=== PATIENT | male | born 1960 | race Caucasian/White ===

== ENCOUNTER 2019-11-21 06:33 | Inpatient (IN) | payer OTHER, SELFPAY ==
[2019-11-21 07:05] LABS: Hemoglobin 16.1 g/dL (14.0-18.0); Mean Corpuscular HGB CONC 33.4 g/dL (32.0-36.0); Mean Corpuscular Hemoglobin 30.3 pg (27.0-31.0); Mean Corpuscular Volume 90.8 fL (78.0-98.0); Mean Platelet Volume 10.9 fL (7.4-10.4); Platelet Count 87 thou/uL (130-400); RBC Distribution Width 13.5 % (11.5-14.5); Red Blood Cell (RBC) Count 5.31 mill/uL (4.70-6.10); White Blood Cell (WBC) Count 12.4 thou/uL (4.8-10.8)
[2019-11-21 07:07] LABS: INR-International Normal Ratio 1.1; PTT 24.7 SEC (22.9-36.1); Prothrombin Time 13.8 SEC (12.0-14.7)
[2019-11-21 07:11] LABS: #Neutrophils 10.3 thou/uL (1.40-6.50); %Basophils 0.3 % (0.0-1.0); %Eosinophils 0.3 % (0.0-10.0); %Lymphocytes 7.9 % (21.0-51.0); %Monocytes 8.3 % (0.0-10.0); %Neutrophils 83.2 % (42.0-75.0)
[2019-11-21] MEDS ORDERED: hydrALAZINE 20 MG/ML VIAL ONE (07:20)
[2019-11-21 07:23] LABS: ALT (SGPT) 39 U/L (8-55); AST (SGOT) 28 U/L (5-34); Albumin 4.5 g/dL (3.5-5.0); Alkaline Phosphatase 66 U/L (40-110); Anion Gap 15 mmol/L (10-20); BUN (Urea Nitrogen) 11 mg/dL (8.4-25.7); CK (CPK) 128 U/L (30-200); Calc. Creatinine Clearance 0 mL/min (70-130); Calcium 9.6 mg/dL (7.8-10.44); Carbon Dioxide 21 mmol/L (22-29); Chloride 105 mmol/L (98-107); Estimated GFR-MDRD 77; Globulin 3.5 g/dL (2.4-3.5); Glucose 144 mg/dL (70-105); Potassium 3.6 mmol/L (3.5-5.1); Sodium 137 mmol/L (136-145)
[2019-11-21 07:28] LABS: Platelet Morphology Comment Appears Decreased; RBC Morphology Normal
[2019-11-21] MEDS ORDERED: Sodium Chloride 0.9% 1,000 ML IV SCH (07:30)
[2019-11-21 07:44] LABS: CKMB 1.7 ng/mL (0-6.6)
--- NOTE | 2019-11-21 07:46 | CT ---
CT OF THE BRAIN WITHOUT CONTRAST: INDICATION: Level I stroke, left-sided weakness, last seen normal at 12:00 midnight. COMPARISON: None. FINDINGS: There is a 2.1 cm intraparenchymal hemorrhage centered in the right thalamus. There is mild chronic small-vessel white matter ischemic change. The septum pellucidum and third ventricle are midline. N o additional acute infarct, hemorrhage, or hydrocephalus is evident. Mastoid air cells and paranasal sinuses are clear. IMPRESSION: 1. Hemorrhagic infarct involving the right thalamus. 2. Mild chronic small vessel white matter ischemic change. 3. Findings called to Dr. Sears at 6:42 a.m. on 11/21/2019. CODE CR POS: [place]
[2019-11-21] MEDS: hydrALAZINE 20 MG/ML VIAL SLOW IVP PRN ×3 (10:35→21:22)
[2019-11-21] MEDS ORDERED: Labetalol HCl 100 MG/20 ML VIAL SLOW IVP PRN (11:03)
[2019-11-21] MEDS ORDERED: Ondansetron PF 4 MG/2 ML Vial IVP PRN (12:07)
[2019-11-21] MEDS ORDERED: Acetaminophen 325 MG TAB PO PRN (12:07)
[2019-11-21] MEDS: Sodium Chloride 0.9% 1,000 ML IV SCH ×2 (12:15→23:20)
--- NOTE | 2019-11-21 18:58 | CON ---
DATE OF CONSULTATION: PRIMARY CARE PHYSICIAN: Mary Grace Pickering MD. CHIEF COMPLAINT: "I woke up and I couldn't move my left arm and leg." HISTORY OF PRESENT ILLNESS: Mr. Gr is a very pleasant 59-year-old gentleman who has a history of hypertension. He says that he has not had any problems until early this morning around 5:15 a.m., he woke up with some slurred speech and also noted that he could not move his left arm and left thigh. As a result, he came to the ER for evaluation. In the ER, he was evaluated and had a CT scan of the brain done. CT scan revealed a right thalamic bleed. He was admitted to the neurosurgery service and we have been consulted to help with medical management. The patient says he denied having any headache. No dizziness. No visual changes. No chest pain or shortness of breath. No nausea, but he did have one episode of vomiting. No diarrhea. He admits that he has not taken his blood pressure medications in a few weeks, and when asked why, he says he thought that he "didn't need them anymore." Otherwise, the patient has no other complaints. REVIEW OF SYSTEMS: All systems were reviewed and are negative except for that mentioned in the history of present illness. PAST MEDICAL HISTORY: Significant for hypertension. PAST SURGICAL HISTORY: He has had an appendectomy. ALLERGIES: NO KNOWN DRUG ALLERGIES. SOCIAL HISTORY: He is single. He has 3 children. His sister, Roselyn Christina, is his surrogate decision maker. He would like to be a full code. He is a former smoker, he quit 20 years ago, prior to that he smoked 2 packs a day for 5 years. He denies any alcohol use, he says he quit that about 22 years ago. FAMILY HISTORY: Significant for hypertension. MEDICATIONS: 1. Bisoprolol. 2. Hydrochlorothiazide 10 mg daily. PHYSICAL EXAMINATION: GENERAL: He is alert and oriented. He appears to be in no acute distress. He is well developed and well nourished. VITAL SIGNS: Blood pressure was 124/93 most recently, heart rate in the 80s, respiratory rate of 16, and he is afebrile. HEENT: Pupils are equal, round, and reactive to light. Extraocular muscles are intact. His sclerae anicteric. Throat, there is no erythema, no exudate. NECK: There is no adenopathy. No bruits. LUNGS: Clear to auscultation. There is no wheezing, no rales, no rhonchi. CARDIOVASCULAR: He has a normal S1 and S2. No S3 or S4. No murmurs, clicks, or rubs. ABDOMEN: Obese. It is soft, nontender, and nondistended. Positive for bowel sounds. No rebound. No guarding. No organomegaly. EXTREMITIES: There is no clubbing or cyanosis. No edema. NEUROLOGIC: He has left facial droop, and he has flaccid paralysis in the left upper extremity. The left lower extremity, he was able to move it in the lateral plane, but not lifted against gravity and not against resistance. He was able to slightly dorsiflex the foot. The reflexes were hyperactive in the patella as well as the brachioradialis. SKIN AND INTEGUMENT: There are no skin changes and no rash. LABORATORY RESULTS: White blood cell count is 12.4, hemoglobin 16.1, hematocrit is 48.2, and platelet count was 87. INR is 1.1. Sodium 137, potassium 3.6, chloride is 105, CO2 is 21, BUN of 11, creatinine 1.0, and glucose is 144. Troponin is 0.055. CT scan of the brain, again there is an area of bleed in the left thalamus and this is by my reading, no midline shift and no extension into the ventricles. ASSESSMENT: This is a pleasant 59-year-old gentleman who suffered an intracerebral hemorrhage, likely as a result of uncontrolled hypertension. The patient admits to stopping his blood pressure medicines a couple of weeks ago and the area of the bleed is one typically seen for hypertensive bleed. He is being admitted to the neurosurgical service. It appears as if surgery is not indicated at this time and primarily managing with blood pressure control. PLAN: For hypertension, restart a beta shruthi, but we will hold off on starting a combination pill with a diuretic given the brain bleed and treat him with a beta shruthi. We will start him on carvedilol at low dose for now. Continue the p.r.n. hydralazine and labetalol as already ordered. He has been counseled on the need for continued antihypertensive medications. We will be happy to follow along with you. Job ID: [id number]
--- NOTE | 2019-11-21 18:58 | CON ---
DATE OF CONSULTATION: 11/21/2019 HISTORY OF PRESENT ILLNESS: Mr. Gr is a 59-year-old male, who presented today to [facility] Emergency room due to an acute left-sided weakness. States he was unable to move his left arm around 5 a.m. this morning. States it felt like his arm was . He presented to the emergency room with left-sided weakness and slurred speech. He has a past medical history of hypertension and he denies any blood thinners. His blood pressure in the emergency room was 146/92, temperature was around 96. He denied any sudden onset of headaches. He states he use to smoke three packs a day, but quit 20 years ago. States he used to drink about a pint of scotch daily, but has quit 22 years ago. He is former recovering from cocaine. States he has been out of rehab for the past 5 years. Mr. 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 Last night he found $40 of crack cocaine and smoked it around 10 p.m. last night. MEDICATION: Current Medication; bisoprolol with hydrochlorothiazide 10 mg-6.25 mg one tablet a day. Denies taking his current medication for the past two weeks. PAST MEDICAL HISTORY: GERD and hypertension. ALLERGIES: NO KNOWN DRUG ALLERGIES. SURGICAL HISTORY: Appendectomy. SOCIAL HISTORY: Three packs a day, 20 years ago; one pint of scotch daily 22 years ago. Former recovery from cocaine, 5 years sober. REVIEW OF SYSTEMS: CONSTITUTION: Denies fever or chills. NOSE AND THROAT: Denies change in vision or hearing. CARDIAC: Denies chest pain, shortness of breath, or diaphoresis. PULMONARY: Denies shortness of breath, cough, or hemoptysis. GI: Denies abdominal pain, nausea, vomiting, diarrhea, change in stool formation or consistency. : Denies trouble with urination, frequency of urination, or bloody urine. SKIN: Denies skin rash, bruising, bleeding, or skin masses. MUSCULOSKELETAL: Left arm and leg weakness. NEUROLOGICAL: Instability, abnormal gait PSYCHOLOGICAL: Denies any behavior changes. States he does have some depression and anxiety. PHYSICAL EXAMINATION: VITAL SIGNS: Blood pressure 134/79, heart rate 78, temperature is around 96.8 degrees. HEENT: Pupils are equal. EOMs are intact. NECK: Soft, supple. No masses are noted. Range of motion is intact and nonpainful. NEUROLOGICAL: Awake and alert. Memory, attention, fund of knowledge normal. Cranial nerve: Left facial weakness and asymmetry. Abnormal left eyebrow raising. Unable to smile, frown or close eyes together. Normal tongue protrusion. Upper extremity, left arm limb weakness, paresthesia. He is unable to move his left arm against gravity. Left lower leg weakness, paresthesia. He is able to wiggle his toes and slightly raised his left leg. Moves his left leg slightly against gravity. His eye opening is spontaneous. He responds to verbal commands and is fully oriented. He has motorized response to localize pain on the left. IMAGING: CT of the brain this morning showed a right thalamic and internal capsule hemorrhage. PLAN: Control BP and the patient should not need surgery. Mr. Gr will remain in ICU overnight with neuro checks. Repeat the CT of the brain at 7 p.m. Non-operative intracerebral hemorrhage should be able to sign off and have medicine team follow up in the morning. We will rescan in 3 weeks and have Mr. Gr follow up in our clinic. Job ID: [id number] [facility] SYSTEM[facility]
--- NOTE | 2019-11-21 20:35 | CT ---
CT head noncontrast HISTORY: Intracranial hemorrhage. Follow-up. COMPARISON: 11/21/2019. Earlier exam on the same date. FINDINGS: The oval hyperdense hematoma centered at the right basal ganglia is unchanged in size and s hape, measuring 2.1 cm greatest oblique diameter on axial image #16. A small amount of hyperdense hemorrhage is now present within each the dependent portion of each late ral ventricle, right greater than left. Ventricular system decompressed. No mass effect or shift of midline structures. IMPRESSION : Interval extension of small amount of blood into each lateral ventricle without evidence of hydroceph alus. Right basal ganglia hematoma is unchanged.
[2019-11-22] MEDS: hydrALAZINE 20 MG/ML VIAL SLOW IVP PRN (06:26)
--- NOTE | 2019-11-22 07:20 | PRG ---
DATE OF SERVICE: 11/22/2019 I personally interviewed and examined the patient, agreed with documentation of Moris Herrmann PA-C dated 11/21/2019. Briefly, Claudy Gr came to our emergency department yesterday with new-onset left body weakness. It turns out he smoked crack cocaine the night before. CT examination of the brain revealed a hemorrhage in the right thalamus and internal capsule. It was small in size and has remained small. Followup CT scan was done yesterday and there has been no change and no increase in size. Mr. Gr is awake this morning. He is moving his right side well and speaking and understanding language. He is not moving the left side. There is no neurosurgical intervention for Mr. Gr. We will hand off his care to the medical team. He will need inpatient physical and occupational therapy to recover from the stroke. Call us with questions if they arise while he is here. Job ID: [id number]
[2019-11-22] MEDS ORDERED: cloNIDine 0.1 MG TAB PO PRN ×2 (07:58→13:32)
[2019-11-22] MEDS ORDERED: Carvedilol 3.125 MG TAB PO SCH (08:00)
[2019-11-22] MEDS ORDERED: Pantoprazole 40 MG VIAL IVP SCH (09:00)
[2019-11-22 10:34] LABS: Troponin I 0.037 ng/mL (< 0.028)
[2019-11-22 11:31] LABS: ALT (SGPT) 31 U/L (8-55); AST (SGOT) 26 U/L (5-34); Alkaline Phosphatase 61 U/L (40-110); Anion Gap 13 mmol/L (10-20); BUN (Urea Nitrogen) 12 mg/dL (8.4-25.7); Bilirubin, Total 1.1 mg/dL (0.2-1.2); Calc. Creatinine Clearance 123 mL/min (70-130); Carbon Dioxide 20 mmol/L (22-29); Chloride 107 mmol/L (98-107); Estimated GFR-MDRD 86; Globulin 3.2 g/dL (2.4-3.5); Glucose 130 mg/dL (70-105); Magnesium 2.1 mg/dL (1.6-2.6); Protein, Total 7.2 g/dL (6.0-8.3); Sodium 136 mmol/L (136-145)
--- NOTE | 2019-11-22 14:01 | PRG ---
DATE OF SERVICE: 11/22/2019 SUBJECTIVE: A 59-year-old male with hypertension, not compliant with antihypertensives, presented to the hospital with left-sided weakness. His workup was consistent with intracranial bleed involving the right thalamus. He continues to have some nausea. No new focal deficit reported. PHYSICAL EXAMINATION: VITAL SIGNS: Temperature 98.3 with pulse rate of 71, blood pressure of 142/75, respirations of 19, and O2 saturation 97% on room air. GENERAL: A 59-year-old male, in no apparent distress. LUNGS: Clear to auscultation bilaterally. No wheezing, rales, or rhonchi. HEART: S1 and S2 present. Regular rate and rhythm. No rubs or gallops. ABDOMEN: Soft, nontender. Bowel sounds present. PSYCHIATRY: The patient is alert, awake, and oriented x3. Normal affect. NEUROLOGIC: No new focal deficit. The patient continues to have left-sided weakness. SKIN: Warm and dry. LYMPH NODES: No palpable lymph nodes in the neck. Telemetry monitoring by my review showed sinus rhythm. CURRENT MEDICATIONS: Reviewed. The patient is on IV fluids, carvedilol, and Protonix. LABORATORY FINDINGS: CBC showed WBC 12.4 with hemoglobin 16.1, hematocrit 48.2, and platelets of 87. PT, INR, and PTT in normal range. Chemistry showed sodium 136, potassium 4, chloride 107, bicarb 20, BUN 12, and creatinine 0.91. LFTs in normal range. Troponin repeat was 0.037. CT scan of the brain by my review as discussed above. IMPRESSION: 1. Acute right thalamic hemorrhagic infarction secondary to uncontrolled blood pressure. 2. Cocaine abuse. 3. Hypertension, not compliant with medication. 4. Gastroesophageal reflux disease. 5. Chronic kidney disease, stage 2. 6. Thrombocytopenia. PLAN: The patient will be transferred to Stroke Unit. We will avoid beta blockers due to cocaine abuse. We will start him on amlodipine. We will reduce IV fluids. We will change PPIs to p.o. Continue Stroke Team. We will get urine drug screen. Recheck labs in a.m. DVT prophylaxis with SCDs. The patient understands the above plan of care. Lifestyle modification was emphasized. Job ID: [id number]
[2019-11-22] MEDS: Labetalol HCl 100 MG/20 ML VIAL SLOW IVP PRN ×2 (14:25→21:56)
[2019-11-22] MEDS: Sodium Chloride 0.9% 1,000 ML IV SCH ×2 (15:23→17:37)
[2019-11-22 18:08] LABS: Amphetamine Not Detected (NotDetected); Barbiturates Screen Not Detected (NotDetected); Benzodiazepine Screen Not Detected (NotDetected); Cocaine Metabolite Screen Detected (NotDetected); Medtox Control Line Valid? VALID (VALID); Medtox Reader # READER 4; Methadone Not Detected (NotDetected); Methamphetamine Not Detected (NotDetected); Opiate Screen Not Detected (NotDetected); Oxycodone Screen Not Detected (NotDetected); Phencyclidine (PCP) Not Detected (NotDetected); THC/Cannabinoid Screen Not Detected (NotDetected); Tricyclic Screen Not Detected (NotDetected)
[2019-11-22] MEDS: Amlodipine 5 MG TAB PO SCH (20:10)
[2019-11-23] MEDS: hydrALAZINE 20 MG/ML VIAL SLOW IVP PRN ×3 (00:30→22:04)
[2019-11-23] MEDS: Labetalol HCl 100 MG/20 ML VIAL SLOW IVP PRN (02:15)
[2019-11-23 04:14] LABS: Eosinophils 1 % (0-10); Hemoglobin 14.8 g/dL (14.0-18.0); Lymphocytes 41 % (21-51); MDiff Complete? YES; Mean Corpuscular HGB CONC 32.9 g/dL (32.0-36.0); Mean Corpuscular Volume 91.1 fL (78.0-98.0); Mean Platelet Volume 11.7 fL (7.4-10.4); Monocytes 13 % (0-10); Neutrophil 45 % (42-75); Platelet Count 79 thou/uL (130-400); Platelet Morphology Comment Appears Decreased; RBC Distribution Width 13.8 % (11.5-14.5); Red Blood Cell (RBC) Count 4.95 mill/uL (4.70-6.10); White Blood Cell (WBC) Count 5.2 thou/uL (4.8-10.8)
[2019-11-23 04:24] LABS: ALT (SGPT) 28 U/L (8-55); AST (SGOT) 20 U/L (5-34); Albumin 4.1 g/dL (3.5-5.0); Alkaline Phosphatase 59 U/L (40-110); Anion Gap 13 mmol/L (10-20); BUN (Urea Nitrogen) 9 mg/dL (8.4-25.7); Bilirubin, Total 1.1 mg/dL (0.2-1.2); Calc. Creatinine Clearance 139 mL/min (70-130); Calcium 8.8 mg/dL (7.8-10.44); Carbon Dioxide 20 mmol/L (22-29); Chloride 107 mmol/L (98-107); Estimated GFR-MDRD Greater than 90; Globulin 2.9 g/dL (2.4-3.5); Glucose 93 mg/dL (70-105); Magnesium 2.2 mg/dL (1.6-2.6); Potassium 3.2 mmol/L (3.5-5.1); Sodium 137 mmol/L (136-145)
[2019-11-23] MEDS: Sodium Chloride 0.9% 1,000 ML IV SCH ×2 (06:20→18:36)
--- NOTE | 2019-11-23 09:22 | EKG ---
Test Reason : Blood Pressure : / mmHG Vent. Rate : 085 BPM Atrial Rate : 085 BPM P-R Int : 166 ms QRS Dur : 098 ms QT Int : 396 ms P-R-T Axes : 033 009 008 degrees QTc Int : 471 ms Normal sinus rhythm Minimal voltage criteria for LVH, may be normal variant Borderline ECG Confirmed by GERSON LAKE ([id number]), publishing editor SARAH BETH RICKETTS ([id number]) on 11/23/2019 9:22:14 AM Referred By: Confirmed By:GERSON LAKE
[2019-11-23] MEDS: Amlodipine 5 MG TAB PO SCH ×2 (09:39→20:03)
[2019-11-23] MEDS: Potassium Chloride 20 MEQ TAB PO SCH ×2 (09:39→16:18)
[2019-11-23] MEDS ORDERED: hydrALAZINE 25 MG TAB PO PRN (13:51)
--- NOTE | 2019-11-23 16:52 | PDOC.HOSPP ---
- Subjective Encounter Date: 11/23/19 Encounter Time: 15:00 Subjective: Patient seen and examined for intracranial bleed. No new focal deficits. Left sided weakness improving. No new complaints. No overnight events - Objective Vital Signs & Weight: Vital Signs (12 hours) Temp Pulse Pulse Pulse Pulse BP BP 11/23/19 15:02 97.7 F 11/23/19 15:00 92 80 76 149/114 H 11/23/19 11:12 98.2 F 11/23/19 09:39 86 142/81 H 11/23/19 08:00 11/23/19 07:16 98.5 F 11/23/19 06:11 75 157/78 H BP BP Pulse Ox Pulse Ox Pulse Ox Pulse Ox 11/23/19 15:02 11/23/19 15:00 135/84 150/91 H 100 100 100 11/23/19 11:12 11/23/19 09:39 11/23/19 08:00 99 11/23/19 07:16 11/23/19 06:11 Weight Weight 218 lb 12.8 oz Most Recent Monitor Data Heart Rate from ECG 78 NIBP 168/96 NIBP BP-Mean 120 Respiration from ECG 32 SpO2 100 I&O: 11/22/19 11/23/19 11/24/19 06:59 06:59 06:59 Intake Total 2114 2087 Output Total 770 940 600 Balance 1344 1147 -600 Result Diagrams: 11/23/19 03:14 11/23/19 03:14 EKG Reviewed by me: Yes (Tele SR) Hospitalist ROS - Review of Systems Respiratory: denies: cough, dry, shortness of breath, hemoptysis, SOB with excertion, pleuritic pain, sputum, wheezing, other Cardiovascular: denies: chest pain, palpitations, orthopnea, paroxysmal noc. dyspnea, edema, light headedness, other - Medication Medications: Active Medications Generic Name Dose Route Start Last Admin Trade Name Freq PRN Reason Stop Dose Admin Amlodipine Besylate 5 mg 11/22/19 21:00 11/23/19 09:39 Norvasc PO 5 mg BID MICHAEL Administration Hydralazine HCl 10 mg 11/21/19 07:35 11/23/19 06:11 Apresoline SLOW IVP 10 mg Q4H PRN Administration Blood Pressure Sodium Chloride 1,000 mls @ 50 mls/hr 11/22/19 13:30 11/23/19 06:20 Normal Saline 0.9% IV 1,000 mls .Q20H MICHAEL Administration Labetalol HCl 10 mg 11/21/19 11:59 11/23/19 02:15 Normodyne SLOW IVP 10 mg Q4H PRN Administration SBP > 140 Pantoprazole Sodium 40 mg 11/23/19 09:00 11/23/19 09:39 Protonix PO 40 mg DAILY MICHAEL Administration Potassium Chloride 20 meq 11/23/19 08:00 11/23/19 16:18 K-Dur PO 20 meq BID-WM MICHAEL Administration - Exam General Appearance: NAD Heart: RRR, no gallops Respiratory: CTAB, no rales Gastrointestinal: soft, normal bowel sounds Extremities: no cyanosis Neurological: no new deficit Hosp A/P - Plan DVT proph w/SCDs 1. 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 2. Cocaine abuse. Counselled. 3. Hypertension, not compliant with medication. 4. Gastroesophageal reflux disease. 5. Chronic kidney disease, stage 2. 6. Thrombocytopenia. 7. Hypokalemia PLAN: Cont Amlodipine DC IVF if tolerating PO well Replace Potassium Cont PRN meds Cont other meds as above
[2019-11-24] MEDS: hydrALAZINE 20 MG/ML VIAL SLOW IVP PRN (02:10)
[2019-11-24 04:04] LABS: Band 4 % (5-11); Eosinophils 1 % (0-10); Lymphocytes 35 % (21-51); MDiff Complete? YES; Monocytes 12 % (0-10); Neutrophil 44 % (42-75); Platelet Morphology Comment Appears Decreased; RBC Morphology Normal; Reactive Lymphocytes 4 % (0-10)
[2019-11-24 04:05] LABS: Anion Gap 13 mmol/L (10-20); BUN (Urea Nitrogen) 8 mg/dL (8.4-25.7); Calc. Creatinine Clearance 141 mL/min (70-130); Calcium 9.2 mg/dL (7.8-10.44); Carbon Dioxide 21 mmol/L (22-29); Chloride 109 mmol/L (98-107); Estimated GFR-MDRD Greater than 90; Glucose 95 mg/dL (70-105); Potassium 3.8 mmol/L (3.5-5.1); Sodium 139 mmol/L (136-145)
[2019-11-24 04:05] LABS: Hemoglobin 15.6 g/dL (14.0-18.0); Mean Corpuscular HGB CONC 33.3 g/dL (32.0-36.0); Mean Corpuscular Hemoglobin 30.3 pg (27.0-31.0); Mean Corpuscular Volume 91.1 fL (78.0-98.0); Mean Platelet Volume 11.8 fL (7.4-10.4); Platelet Count 87 thou/uL (130-400); RBC Distribution Width 13.7 % (11.5-14.5); Red Blood Cell (RBC) Count 5.15 mill/uL (4.70-6.10); White Blood Cell (WBC) Count 5.9 thou/uL (4.8-10.8)
[2019-11-24] MEDS: Potassium Chloride 20 MEQ TAB PO SCH ×2 (09:48→17:14)
[2019-11-24] MEDS: Multivit, Therapeutic 1 TAB PO SCH (09:48)
[2019-11-24] MEDS: Amlodipine 5 MG TAB PO SCH ×2 (09:48→20:34)
--- NOTE | 2019-11-24 17:12 | PDOC.HOSPP ---
- Subjective Encounter Date: 11/24/19 Encounter Time: 16:00 Subjective: Patient seen and examined for ICH. No new focal deficits. Still has same blurriness of vision. No new complaints. No overnight events - Objective Vital Signs & Weight: Vital Signs (12 hours) Temp Pulse Pulse BP BP BP Pulse Ox 11/24/19 15:28 93 158/98 H 135/97 H 11/24/19 15:11 98.6 F 11/24/19 11:07 98.6 F 11/24/19 09:48 66 163/87 H 11/24/19 08:00 100 11/24/19 07:19 98.4 F Weight Weight 220 lb 14.4 oz Most Recent Monitor Data Heart Rate from ECG 101 NIBP 158/98 NIBP BP-Mean 118 Respiration from ECG 26 SpO2 90 I&O: 11/23/19 11/24/19 11/25/19 06:59 06:59 06:59 Intake Total 2087 510 Output Total 940 1695 Balance 1147 -1185 Result Diagrams: 11/24/19 03:19 11/24/19 03:18 EKG Reviewed by me: Yes (Tele SR) Hospitalist ROS - Review of Systems Respiratory: denies: cough, dry, shortness of breath, hemoptysis, SOB with excertion, pleuritic pain, sputum, wheezing, other Cardiovascular: denies: chest pain, palpitations, orthopnea, paroxysmal noc. dyspnea, edema, light headedness, other - Medication Medications: Active Medications Generic Name Dose Route Start Last Admin Trade Name Freq PRN Reason Stop Dose Admin Amlodipine Besylate 5 mg 11/22/19 21:00 11/24/19 09:48 Norvasc PO 5 mg BID MICHAEL Administration Hydralazine HCl 10 mg 11/21/19 07:35 11/24/19 02:10 Apresoline SLOW IVP 10 mg Q4H PRN Administration Blood Pressure Labetalol HCl 10 mg 11/21/19 11:59 11/23/19 02:15 Normodyne SLOW IVP 10 mg Q4H PRN Administration SBP > 140 Multivitamins 1 tab 11/24/19 09:00 11/24/19 09:48 Theragran PO 1 tab DAILY MICHAEL Administration Pantoprazole Sodium 40 mg 11/23/19 09:00 04/19/20 09:48 Protonix PO 40 mg DAILY MICHAEL Administration Potassium Chloride 20 meq 11/23/19 08:00 11/24/19 09:48 K-Dur PO 20 meq BID-WM MICHAEL Administration - Exam General Appearance: NAD Heart: RRR, no gallops Respiratory: no wheezes, no ronchi Gastrointestinal: soft, non-distended Extremities: no cyanosis Neurological: no new deficit Hosp A/P - Plan DVT proph w/SCDs 1. 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 2. Cocaine abuse. Counselled. 3. Hypertension, not compliant with medication. 4. Gastroesophageal reflux disease. 5. Chronic kidney disease, stage 2. 6. Thrombocytopenia. 7. Hypokalemia PLAN: Cont Amlodipine DC IVF Cont Potassium supp Cont PRN meds Cont other meds as above Will d/w Ophthalomology tomorrow
[2019-11-24] MEDS: Sodium Chloride 0.9% 1,000 ML IV SCH (17:14)
[2019-11-25 04:11] LABS: Hemoglobin 15.9 g/dL (14.0-18.0); Platelet Count 88 thou/uL (130-400)
[2019-11-25 04:29] LABS: Anion Gap 14 mmol/L (10-20); BUN (Urea Nitrogen) 10 mg/dL (8.4-25.7); Calc. Creatinine Clearance 131 mL/min (70-130); Calcium 9.5 mg/dL (7.8-10.44); Carbon Dioxide 20 mmol/L (22-29); Chloride 107 mmol/L (98-107); Estimated GFR-MDRD 90; Glucose 86 mg/dL (70-105); Sodium 137 mmol/L (136-145)
[2019-11-25] MEDS: hydrALAZINE 20 MG/ML VIAL SLOW IVP PRN (04:33)
[2019-11-25] MEDS: Potassium Chloride 20 MEQ TAB PO SCH (09:03)
[2019-11-25] MEDS: Multivit, Therapeutic 1 TAB PO SCH (09:03)
[2019-11-25] MEDS: Cyanocobalamin (Vitamin B-12) 1,000 MCG TAB PO SCH (09:03)
[2019-11-25] MEDS: Folic Acid 1 MG TAB PO SCH (09:03)
[2019-11-25] MEDS: Amlodipine 5 MG TAB PO SCH ×2 (09:03→21:38)
--- NOTE | 2019-11-25 16:44 | PDOC.HOSPP ---
- Subjective Encounter Date: 11/25/19 Encounter Time: 15:00 Subjective: Patient seen and examined for ICH. No new focal weakness. No CP/SOB. No new complaints. No overnight events - Objective Vital Signs & Weight: Vital Signs (12 hours) Temp Pulse Pulse BP BP Pulse Ox 11/25/19 15:17 97.7 F 11/25/19 13:16 97 125/89 11/25/19 11:13 98.2 F 11/25/19 09:03 116 H 114/89 11/25/19 08:00 99 11/25/19 07:08 98.0 F Weight Weight 218 lb 1.6 oz Most Recent Monitor Data Heart Rate from ECG 110 NIBP 167/106 NIBP BP-Mean 126 Respiration from ECG 22 SpO2 97 I&O: 11/24/19 11/25/19 11/26/19 06:59 06:59 06:59 Intake Total 510 1200 Output Total 1695 1970 50 Balance -1185 -770 -50 Result Diagrams: 11/25/19 03:14 11/25/19 03:14 EKG Reviewed by me: Yes (Tele SR) Hospitalist ROS - Review of Systems Respiratory: denies: cough, dry, shortness of breath, hemoptysis, SOB with excertion, pleuritic pain, sputum, wheezing, other Cardiovascular: denies: chest pain, palpitations, orthopnea, paroxysmal noc. dyspnea, edema, light headedness, other - Medication Medications: Active Medications Generic Name Dose Route Start Last Admin Trade Name Freq PRN Reason Stop Dose Admin Amlodipine Besylate 5 mg 11/22/19 21:00 11/25/19 09:03 Norvasc PO 5 mg BID MICHAEL Administration Cyanocobalamin 1,000 mcg 11/25/19 09:00 11/25/19 09:03 Vitamin B-12 PO 1,000 mcg DAILY MICHAEL Administration Folic Acid 1 mg 11/25/19 09:00 11/25/19 09:03 Folvite PO 1 mg DAILY MICHAEL Administration Hydralazine HCl 10 mg 11/21/19 07:35 11/25/19 04:33 Apresoline SLOW IVP 10 mg Q4H PRN Administration Blood Pressure Labetalol HCl 10 mg 11/21/19 11:59 11/23/19 02:15 Normodyne SLOW IVP 10 mg Q4H PRN Administration SBP > 140 Multivitamins 1 tab 11/24/19 09:00 11/25/19 09:03 Theragran PO 1 tab DAILY MICHAEL Administration Pantoprazole Sodium 40 mg 11/23/19 09:00 11/25/19 09:03 Protonix PO 40 mg DAILY MICHAEL Administration - Exam General Appearance: NAD Heart: RRR, no gallops Respiratory: no wheezes, no ronchi Gastrointestinal: non-tender, normal bowel sounds Neurological: no new deficit Hosp A/P - Plan DVT proph w/SCDs 1. 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 2. Cocaine abuse. Counselled. 3. HTN 4. GERD 5. Chronic kidney disease, stage 2. 6. Thrombocytopenia. 7. Hypokalemia PLAN: Cont Amlodipine DC Potassium Cont PRN HTN meds Cont other meds as above Ophthal input appreciated Await placement
--- NOTE | 2019-11-25 19:31 | CON ---
DATE OF CONSULTATION: 11/25/2019 TIME OF CONSULTATION: 12:30 p.m. REASON FOR CONSULTATION: Blurred vision. HISTORY OF PRESENT ILLNESS: The patient had a CVA 4 days previously and states that he has noticed blurred vision after that. With further discussion, he does state that his glasses are very old and somewhat scratched. PHYSICAL EXAMINATION: HEENT: On examination, visual acuity with his current glasses at near was J-10 with the right eye and J-7 with the left eye. The pupils were equal and reactive without an afferent pupillary defect. Ocular motility showed good alignment and full range of motion. Intraocular pressures were normal with tonopen. The patient's pupils were dilated with Joey-Synephrine and Mydriacyl.After dilation, the lenses appeared to have perhaps 1+ nuclear sclerosis. His cup/disk ratio is about 0.5 with normal rim color, vessels, and maculae. Peripheral retina is flat and attached without defect, hemorrhages, or edema. IMPRESSION: Mild cataracts and refractive error without neurologic cause for his decreased vision. PLAN: He was simply recommended to get a refractive eye exam at some point after his discharge. Job ID: [id number] [facility]
[2019-11-25] MEDS: Artificial Tears 18 DROP/0.9 ML EA EYE SCH (21:38)
[2019-11-26] MEDS: Cyanocobalamin (Vitamin B-12) 1,000 MCG TAB PO SCH (09:53)
[2019-11-26] MEDS: Amlodipine 5 MG TAB PO SCH ×2 (09:53→21:04)
[2019-11-26] MEDS: Multivit, Therapeutic 1 TAB PO SCH (09:53)
[2019-11-26] MEDS: Artificial Tears 18 DROP/0.9 ML EA EYE SCH ×4 (09:53→21:13)
[2019-11-26] MEDS: Folic Acid 1 MG TAB PO SCH (09:54)
--- NOTE | 2019-11-26 19:26 | PDOC.HOSPP ---
- Subjective Encounter Date: 11/26/19 Encounter Time: 15:00 Subjective: Patient seen and examined for ICH. Feeling better. No new weakness. No new complaints. No overnight events - Objective Vital Signs & Weight: Vital Signs (12 hours) Temp Pulse Pulse Pulse BP BP BP 11/26/19 19:24 98.2 F 11/26/19 15:15 98.1 F 11/26/19 14:09 138/83 138/99 H 11/26/19 11:25 99 106 H 144/90 H 11/26/19 11:20 97.2 F L 11/26/19 09:53 111 H 148/52 H 11/26/19 08:00 BP Pulse Ox Pulse Ox Pulse Ox 11/26/19 19:24 11/26/19 15:15 11/26/19 14:09 11/26/19 11:25 149/89 H 100 98 11/26/19 11:20 11/26/19 09:53 11/26/19 08:00 95 Weight Weight 213 lb 4.8 oz Most Recent Monitor Data Heart Rate from ECG 111 NIBP 160/90 NIBP BP-Mean 113 Respiration from ECG 25 SpO2 98 I&O: 11/25/19 11/26/19 11/27/19 06:59 06:59 06:59 Intake Total 1200 480 Output Total 1970 1100 375 [facility]770 -620 -375 Result Diagrams: 11/25/19 03:14 11/25/19 03:14 EKG Reviewed by me: Yes (Tele SR) Hospitalist ROS - Review of Systems Respiratory: denies: cough, dry, shortness of breath, hemoptysis, SOB with excertion, pleuritic pain, sputum, wheezing, other Cardiovascular: denies: chest pain, palpitations, orthopnea, paroxysmal noc. dyspnea, edema, light headedness, other - Medication Medications: Active Medications Generic Name Dose Route Start Last Admin Trade Name Freq PRN Reason Stop Dose Admin Amlodipine Besylate 5 mg 11/22/19 21:00 11/26/19 09:53 Norvasc PO 5 mg BID MICHAEL Administration Artificial Tears 1 drop 11/25/19 21:00 11/26/19 15:28 Tears Naturale EA EYE Not Given TID MICHAEL Cyanocobalamin 1,000 mcg 11/25/19 09:00 11/26/19 09:53 Vitamin B-12 PO 1,000 mcg DAILY MICHAEL Administration Folic Acid 1 mg 11/25/19 09:00 11/26/19 09:54 Folvite PO 1 mg DAILY MICHAEL Administration Hydralazine HCl 10 mg 11/21/19 07:35 11/25/19 04:33 Apresoline SLOW IVP 10 mg Q4H PRN Administration Blood Pressure Labetalol HCl 10 mg 11/21/19 11:59 11/23/19 02:15 Normodyne SLOW IVP 10 mg Q4H PRN Administration SBP > 140 Multivitamins 1 tab 11/24/19 09:00 11/26/19 09:53 Theragran PO 1 tab DAILY MICHAEL Administration Pantoprazole Sodium 40 mg 11/23/19 09:00 11/26/19 09:53 Protonix PO 40 mg DAILY MICHAEL Administration - Exam General Appearance: NAD Heart: RRR, no rubs Respiratory: no wheezes, no ronchi Gastrointestinal: non-tender, normal bowel sounds Extremities: no cyanosis Hosp A/P - Plan DVT proph w/SCDs 1. 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 2. Vision changes due to #1 3. HTN 4. GERD 5. Chronic kidney disease, stage 2. 6. Thrombocytopenia. 7. Hypokalemia 8. Cocaine abuse. Counselled. PLAN: Cont Amlodipine and PRN HTN meds Cont other meds as above Await placement
[2019-11-27] MEDS: Amlodipine 5 MG TAB PO SCH ×2 (10:19→20:37)
[2019-11-27] MEDS: Cyanocobalamin (Vitamin B-12) 1,000 MCG TAB PO SCH (10:20)
[2019-11-27] MEDS: Artificial Tears 18 DROP/0.9 ML EA EYE SCH ×3 (10:20→20:37)
[2019-11-27] MEDS: Multivit, Therapeutic 1 TAB PO SCH (10:20)
[2019-11-27] MEDS: Folic Acid 1 MG TAB PO SCH (10:20)
--- NOTE | 2019-11-27 18:14 | PDOC.HOSPP ---
- Subjective Encounter Date: 11/27/19 Encounter Time: 09:45 Subjective: Patient seen and examined for ICH. No new weakness. No new complaints. No overnight events - Objective Vital Signs & Weight: Vital Signs (12 hours) Temp Pulse Pulse Pulse BP BP BP 11/27/19 13:51 113 H 107 H 135/103 H 133/95 H 11/27/19 11:23 97.5 F L 11/27/19 10:19 100 117/88 11/27/19 08:00 11/27/19 07:07 97.8 F Pulse Ox 11/27/19 13:51 11/27/19 11:23 11/27/19 10:19 11/27/19 08:00 100 11/27/19 07:07 Weight Weight 210 lb 4.8 oz Most Recent Monitor Data Heart Rate from ECG 103 NIBP 130/92 NIBP BP-Mean 104 Respiration from ECG 14 SpO2 96 I&O: 11/26/19 11/27/19 11/28/19 06:59 06:59 06:59 Intake Total 480 240 Output Total 1100 575 Balance -620 -335 Result Diagrams: 11/25/19 03:14 11/25/19 03:14 EKG Reviewed by me: Yes (Tele SR) Hospitalist ROS - Review of Systems Respiratory: denies: cough, dry, shortness of breath, hemoptysis, SOB with excertion, pleuritic pain, sputum, wheezing, other Cardiovascular: denies: chest pain, palpitations, orthopnea, paroxysmal noc. dyspnea, edema, light headedness, other Gastrointestinal: denies: nausea, vomiting, abdominal pain, diarrhea, constipation, melena, hematochezia, other - Medication Medications: Active Medications Generic Name Dose Route Start Last Admin Trade Name Freq PRN Reason Stop Dose Admin Amlodipine Besylate 5 mg 11/22/19 21:00 11/27/19 10:19 Norvasc PO 5 mg BID MICHAEL Administration Artificial Tears 1 drop 11/25/19 21:00 11/27/19 14:38 Tears Naturale EA EYE Not Given TID MICHAEL Cyanocobalamin 1,000 mcg 11/25/19 09:00 11/27/19 10:20 Vitamin B-12 PO 1,000 mcg DAILY MICHAEL Administration Folic Acid 1 mg 11/25/19 09:00 04/22/20 10:20 Folvite PO 1 mg DAILY MICHAEL Administration Hydralazine HCl 10 mg 11/21/19 07:35 11/25/19 04:33 Apresoline SLOW IVP 10 mg Q4H PRN Administration Blood Pressure Labetalol HCl 10 mg 11/21/19 11:59 11/23/19 02:15 Normodyne SLOW IVP 10 mg Q4H PRN Administration SBP > 140 Multivitamins 1 tab 11/24/19 09:00 11/27/19 10:20 Theragran PO 1 tab DAILY MICHAEL Administration Pantoprazole Sodium 40 mg 11/23/19 09:00 11/27/19 10:20 Protonix PO 40 mg DAILY MICHAEL Administration - Exam General Appearance: NAD Heart: RRR, no gallops Respiratory: no wheezes, no ronchi Gastrointestinal: non-tender, non-distended Extremities: no cyanosis Neurological: no new deficit Hosp A/P - Plan DVT proph w/SCDs 1. 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 2. Vision changes due to #1 3. HTN 4. GERD 5. Chronic kidney disease, stage 2. 6. Thrombocytopenia. 7. Hypokalemia 8. Cocaine abuse. Counselled. PLAN: Cont Amlodipine Cont PRN HTN meds Await placement - Stable for dc Cont other meds as above Transfer to stroke unit
[2019-11-28] MEDS: Artificial Tears 18 DROP/0.9 ML EA EYE SCH ×3 (08:15→22:15)
[2019-11-28] MEDS: Multivit, Therapeutic 1 TAB PO SCH (08:16)
[2019-11-28] MEDS: Amlodipine 5 MG TAB PO SCH ×2 (08:16→22:10)
[2019-11-28] MEDS: Cyanocobalamin (Vitamin B-12) 1,000 MCG TAB PO SCH (08:16)
[2019-11-28] MEDS: Folic Acid 1 MG TAB PO SCH (08:16)
[2019-11-28] MEDS: Polyethylene Glycol 3350 17 GM Packet PO PRN (15:02)
--- NOTE | 2019-11-28 18:56 | PDOC.HOSPP ---
- Subjective Encounter Date: 11/28/19 Encounter Time: 18:00 Subjective: Patient seen and examined for ICH. No new complaints. No overnight events - Objective Vital Signs & Weight: Vital Signs (12 hours) Temp Pulse Pulse Pulse Pulse Resp BP 11/28/19 15:27 97.9 F 78 16 11/28/19 15:03 11/28/19 14:00 11/28/19 13:35 89 93 11/28/19 12:10 97.9 F 87 18 11/28/19 11:18 97.8 F 11/28/19 09:33 109 H 92 11/28/19 08:16 97 141/72 H 11/28/19 08:00 11/28/19 07:10 97.7 F BP BP BP BP Pulse Ox Pulse Ox Pulse Ox 11/28/19 15:27 147/87 H 93 L 11/28/19 15:03 118/84 11/28/19 14:00 141/94 H 11/28/19 13:35 141/94 H 124/84 11/28/19 12:10 152/93 H 94 L 11/28/19 11:18 11/28/19 09:33 140/106 H 143/99 H 100 99 11/28/19 08:16 11/28/19 08:00 98 11/28/19 07:10 Weight Weight 210 lb 6.4 oz Most Recent Monitor Data Heart Rate from ECG 98 NIBP 125/86 NIBP BP-Mean 99 Respiration from ECG 20 SpO2 100 I&O: 11/27/19 11/28/19 11/29/19 06:59 06:59 06:59 Intake Total 240 250 Output Total 575 650 Balance -335 -400 Result Diagrams: 11/25/19 03:14 11/25/19 03:14 EKG Reviewed by me: Yes (Tele SR) Hospitalist ROS - Review of Systems Respiratory: denies: cough, dry, shortness of breath, hemoptysis, SOB with excertion, pleuritic pain, sputum, wheezing, other Cardiovascular: denies: chest pain, palpitations, orthopnea, paroxysmal noc. dyspnea, edema, light headedness, other - Medication Medications: Active Medications Generic Name Dose Route Start Last Admin Trade Name Freq PRN Reason Stop Dose Admin Amlodipine Besylate 5 mg 11/22/19 21:00 11/28/19 08:16 Norvasc PO 5 mg BID MICHAEL Administration Artificial Tears 1 drop 11/25/19 21:00 11/28/19 17:15 Tears Naturale EA EYE Not Given TID MICHAEL Cyanocobalamin 1,000 mcg 11/25/19 09:00 11/28/19 08:16 Vitamin B-12 PO 1,000 mcg DAILY MICHAEL Administration Folic Acid 1 mg 11/25/19 09:00 11/28/19 08:16 Folvite PO 1 mg DAILY MICHAEL Administration Hydralazine HCl 10 mg 11/21/19 07:35 11/25/19 04:33 Apresoline SLOW IVP 10 mg Q4H PRN Administration Blood Pressure Labetalol HCl 10 mg 11/21/19 11:59 11/23/19 02:15 Normodyne SLOW IVP 10 mg Q4H PRN Administration SBP > 140 Multivitamins 1 tab 11/24/19 09:00 11/28/19 08:16 Theragran PO 1 tab DAILY MICHAEL Administration Pantoprazole Sodium 40 mg 11/23/19 09:00 11/28/19 08:16 Protonix PO 40 mg DAILY MICHAEL Administration Polyethylene Glycol 17 gm 11/28/19 14:17 11/28/19 15:02 Miralax PO 17 gm DAILYPRN PRN Administration Constipation - Exam General Appearance: NAD Heart: RRR, no gallops Respiratory: CTAB, no rales Gastrointestinal: soft, non-distended Extremities: no cyanosis Hosp A/P - Plan DVT proph w/SCDs 1. 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 2. Vision changes due to #1 3. HTN 4. GERD 5. Chronic kidney disease, stage 2. 6. Thrombocytopenia. 7. Hypokalemia 8. Cocaine abuse. Counselled. PLAN: Cont Amlodipine/ PRN HTN meds Cont other meds as above Await placement - Stable for dc
[2019-11-28] MEDS: Senokot S 8.6-50 MG TAB PO SCH (22:11)
[2019-11-28 22:17] LABS: Hemoglobin 15.7 g/dL (14.0-18.0); Mean Corpuscular HGB CONC 33.9 g/dL (32.0-36.0); Mean Corpuscular Hemoglobin 30.6 pg (27.0-31.0); Mean Corpuscular Volume 90.2 fL (78.0-98.0); RBC Distribution Width 13.7 % (11.5-14.5); Red Blood Cell (RBC) Count 5.13 mill/uL (4.70-6.10); White Blood Cell (WBC) Count 6.9 thou/uL (4.8-10.8)
[2019-11-28 22:36] LABS: Mean Platelet Volume 11.4 fL (7.4-10.4); Platelet Count 86 thou/uL (130-400)
[2019-11-28 22:37] LABS: Band 4 % (5-11); Eosinophils 2 % (0-10); Large Platelets SLIGHT; Lymphocytes 22 % (21-51); MDiff Complete? YES; Monocytes 17 % (0-10); Neutrophil 49 % (42-75); Platelet Morphology Comment Appears Decreased; Reactive Lymphocytes 6 % (0-10)
[2019-11-28 22:52] LABS: Anion Gap 13 mmol/L (10-20); BUN (Urea Nitrogen) 14 mg/dL (8.4-25.7); Calc. Creatinine Clearance 128 mL/min (70-130); Calcium 9.3 mg/dL (7.8-10.44); Carbon Dioxide 22 mmol/L (22-29); Chloride 105 mmol/L (98-107); Estimated GFR-MDRD Greater than 90; Glucose 92 mg/dL (70-105); Magnesium 2.3 mg/dL (1.6-2.6); Sodium 136 mmol/L (136-145)
[2019-11-29 04:50] LABS: Hemoglobin 15.4 g/dL (14.0-18.0); Platelet Count 97 thou/uL (130-400)
[2019-11-29] MEDS: Senokot S 8.6-50 MG TAB PO SCH ×2 (09:38→20:10)
[2019-11-29] MEDS: Multivit, Therapeutic 1 TAB PO SCH (09:38)
[2019-11-29] MEDS: Cyanocobalamin (Vitamin B-12) 1,000 MCG TAB PO SCH (09:39)
[2019-11-29] MEDS: Folic Acid 1 MG TAB PO SCH (09:39)
[2019-11-29] MEDS: Amlodipine 5 MG TAB PO SCH ×2 (09:39→20:10)
[2019-11-29] MEDS: Artificial Tears 18 DROP/0.9 ML EA EYE SCH ×3 (09:40→20:11)
[2019-11-29] MEDS: Polyethylene Glycol 3350 17 GM Packet PO PRN (12:10)
--- NOTE | 2019-11-29 19:15 | PDOC.HOSPP ---
- Subjective Encounter Date: 11/29/19 Encounter Time: 11:00 Subjective: Patient seen and examined for HTN urgency. No new complaints. No overnight events - Objective Vital Signs & Weight: Vital Signs (12 hours) Temp Pulse Pulse Pulse Pulse Resp BP 11/29/19 16:45 81 11/29/19 15:44 98.1 F 87 20 11/29/19 14:10 98 100 11/29/19 12:12 94 11/29/19 11:33 97.5 F L 79 16 11/29/19 10:08 86 85 11/29/19 09:39 86 112/82 11/29/19 07:20 98.6 F 99 16 BP BP BP BP Pulse Ox 11/29/19 16:45 140/88 11/29/19 15:44 146/94 H 95 11/29/19 14:10 126/76 122/82 11/29/19 12:12 132/77 11/29/19 11:33 158/89 H 93 L 11/29/19 10:08 112/82 135/93 H 11/29/19 09:39 11/29/19 07:20 148/89 H 93 L Weight Weight 211 lb 3.2 oz Most Recent Monitor Data Heart Rate from ECG 98 NIBP 125/86 NIBP BP-Mean 99 Respiration from ECG 20 SpO2 100 I&O: 11/28/19 11/29/19 11/30/19 06:59 06:59 06:59 Intake Total 250 360 962 Output Total 650 700 800 Balance -400 -340 162 Result Diagrams: 11/29/19 04:31 11/28/19 22:06 EKG Reviewed by me: Yes (Tele SR) Hospitalist ROS - Review of Systems Respiratory: denies: cough, dry, shortness of breath, hemoptysis, SOB with excertion, pleuritic pain, sputum, wheezing, other Cardiovascular: denies: chest pain, palpitations, orthopnea, paroxysmal noc. dyspnea, edema, light headedness, other Gastrointestinal: denies: nausea, vomiting, abdominal pain, diarrhea, constipation, melena, hematochezia, other - Medication Medications: Active Medications Generic Name Dose Route Start Last Admin Trade Name Freq PRN Reason Stop Dose Admin Amlodipine Besylate 5 mg 11/22/19 21:00 11/29/19 09:39 Norvasc PO Not Given BID MICHAEL Artificial Tears 1 drop 11/25/19 21:00 11/29/19 14:53 Tears Naturale EA EYE Not Given TID MICHAEL Clonidine 0.1 mg 11/22/19 13:32 11/28/19 23:27 Catapres PO 0.1 mg Q4H PRN Administration SBP GREATER THAN 160 Cyanocobalamin 1,000 mcg 11/25/19 09:00 11/29/19 09:39 Vitamin B-12 PO 1,000 mcg DAILY MICHAEL Administration Folic Acid 1 mg 11/25/19 09:00 11/29/19 09:39 Folvite PO 1 mg DAILY MICHAEL Administration Hydralazine HCl 10 mg 11/21/19 07:35 11/25/19 04:33 Apresoline SLOW IVP 10 mg Q4H PRN Administration Blood Pressure Labetalol HCl 10 mg 11/21/19 11:59 11/23/19 02:15 Normodyne SLOW IVP 10 mg Q4H PRN Administration SBP > 140 Multivitamins 1 tab 11/24/19 09:00 11/29/19 09:38 Theragran PO 1 tab DAILY MICHAEL Administration Pantoprazole Sodium 40 mg 11/23/19 09:00 11/29/19 09:38 Protonix PO 40 mg DAILY MICHAEL Administration Polyethylene Glycol 17 gm 11/28/19 14:17 11/29/19 12:10 Miralax PO 17 gm DAILYPRN PRN Administration Constipation Senna/Docusate Sodium 2 tab 11/28/19 21:00 11/29/19 09:38 Senokot S PO 2 tab BID MICHAEL Administration - Exam General Appearance: NAD Neck: supple, no JVD Heart: RRR, no gallops Respiratory: CTAB, no rales Gastrointestinal: non-tender, non-distended, normal bowel sounds Extremities: no cyanosis Neurological: no new deficit Neurological - other findings: Left sided weakness improving Psychiatric: normal affect, A&O x 3 Hosp A/P - Plan DVT proph w/SCDs 1. 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 2. Vision changes due to #1 3. HTN 4. GERD 5. Chronic kidney disease, stage 2. 6. Thrombocytopenia. 7. Hypokalemia 8. Cocaine abuse. Counselled. PLAN: Cont PT Cont Amlodipine Cont PRN HTN meds Cont other meds as above Await placement - Stable for discharge
[2019-11-30] MEDS: Folic Acid 1 MG TAB PO SCH (08:04)
[2019-11-30] MEDS: Cyanocobalamin (Vitamin B-12) 1,000 MCG TAB PO SCH (08:04)
[2019-11-30] MEDS: Senokot S 8.6-50 MG TAB PO SCH ×2 (08:04→21:43)
[2019-11-30] MEDS: Multivit, Therapeutic 1 TAB PO SCH (08:04)
[2019-11-30] MEDS: Amlodipine 5 MG TAB PO SCH ×2 (08:04→21:42)
[2019-11-30] MEDS: Artificial Tears 18 DROP/0.9 ML EA EYE SCH ×3 (08:05→21:43)
--- NOTE | 2019-11-30 11:20 | PDOC.HOSPP ---
- Subjective Encounter Date: 11/30/19 Encounter Time: 11:18 Subjective: Mr. Gr was seen today in follow-up of ICH. He does not have any new complaints. He notes improved strength in his left leg but continued weakness in his left leg. - Objective Vital Signs & Weight: Vital Signs (12 hours) Temp Pulse Resp BP BP Pulse Ox 11/30/19 08:04 90 138/86 11/30/19 07:36 97.3 F L 94 16 138/86 94 L 11/30/19 03:46 97.9 F 74 16 133/84 95 11/29/19 23:42 97.8 F 84 16 151/97 H 94 L Weight Weight 203 lb 9.6 oz Most Recent Monitor Data Heart Rate from ECG 98 NIBP 125/86 NIBP BP-Mean 99 Respiration from ECG 20 SpO2 100 I&O: 11/29/19 11/30/19 12/01/19 06:59 06:59 06:59 Intake Total 360 1262 Output Total 700 2600 Balance -340 -3831 Result Diagrams: 11/29/19 04:31 11/28/19 22:06 Hospitalist ROS - Medication Medications: Active Medications Generic Name Dose Route Start Last Admin Trade Name Freq PRN Reason Stop Dose Admin Amlodipine Besylate 5 mg 11/22/19 21:00 11/30/19 08:04 Norvasc PO 5 mg BID IMCHAEL Administration Artificial Tears 1 drop 11/25/19 21:00 11/30/19 08:05 Tears Naturale EA EYE Not Given TID MICHAEL Clonidine 0.1 mg 11/22/19 13:32 11/28/19 23:27 Catapres PO 0.1 mg Q4H PRN Administration SBP GREATER THAN 160 Cyanocobalamin 1,000 mcg 11/25/19 09:00 11/30/19 08:04 Vitamin B-12 PO 1,000 mcg DAILY MICHAEL Administration Folic Acid 1 mg 11/25/19 09:00 11/30/19 08:04 Folvite PO 1 mg DAILY MICHAEL Administration Hydralazine HCl 10 mg 11/21/19 07:35 11/25/19 04:33 Apresoline SLOW IVP 10 mg Q4H PRN Administration Blood Pressure Labetalol HCl 10 mg 11/21/19 11:59 11/23/19 02:15 Normodyne SLOW IVP 10 mg Q4H PRN Administration SBP > 140 Multivitamins 1 tab 11/24/19 09:00 11/30/19 08:04 Theragran PO 1 tab DAILY MICHAEL Administration Pantoprazole Sodium 40 mg 11/23/19 09:00 11/30/19 08:04 Protonix PO 40 mg DAILY MICHAEL Administration Polyethylene Glycol 17 gm 11/28/19 14:17 11/29/19 12:10 Miralax PO 17 gm DAILYPRN PRN Administration Constipation Senna/Docusate Sodium 2 tab 11/28/19 21:00 11/30/19 08:04 Senokot S PO 2 tab BID MICHAEL Administration - Exam Eye: PERRL Heart: RRR, no murmur, no gallops, no rubs, normal peripheral pulses Respiratory: CTAB, no wheezes, no rales, no ronchi, normal chest expansion Gastrointestinal: soft, non-tender, non-distended, normal bowel sounds, no palpable masses, no hepatomegaly Extremities: no cyanosis, no edema Psychiatric: normal affect, normal behavior (Left upper extremity weakness, 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
[2019-12-01] MEDS: Amlodipine 5 MG TAB PO SCH ×2 (08:49→20:59)
[2019-12-01] MEDS: Folic Acid 1 MG TAB PO SCH (08:49)
[2019-12-01] MEDS: Senokot S 8.6-50 MG TAB PO SCH ×2 (08:49→21:01)
[2019-12-01] MEDS: Multivit, Therapeutic 1 TAB PO SCH (08:49)
[2019-12-01] MEDS: Cyanocobalamin (Vitamin B-12) 1,000 MCG TAB PO SCH (08:49)
[2019-12-01] MEDS: Artificial Tears 18 DROP/0.9 ML EA EYE SCH ×3 (08:50→21:00)
--- NOTE | 2019-12-01 12:10 | PDOC.HOSPP ---
- Subjective Encounter Date: 12/01/19 Encounter Time: 12:09 Subjective: Mr. Downs was seen today in follow-up of ICH, with left sided hemiparesis. He does not have any complaints. - Objective Vital Signs & Weight: Vital Signs (12 hours) Temp Pulse Resp BP Pulse Ox 12/01/19 12:00 97.3 F L 96 18 132/91 H 92 L 12/01/19 08:49 85 12/01/19 08:41 92 L 12/01/19 08:00 98.3 F 85 27 H 139/88 92 L 12/01/19 04:00 98.3 F 80 20 124/87 91 L 12/01/19 00:20 95 Weight Weight 211 lb 2 oz Most Recent Monitor Data Heart Rate from ECG 98 NIBP 125/86 NIBP BP-Mean 99 Respiration from ECG 20 SpO2 100 I&O: 11/30/19 12/01/19 12/02/19 06:59 06:59 06:59 Intake Total 1262 735 Output Total 2600 200 Balance -1338 535 Result Diagrams: 11/29/19 04:31 11/28/19 22:06 Hospitalist ROS - Medication Medications: Active Medications Generic Name Dose Route Start Last Admin Trade Name Freq PRN Reason Stop Dose Admin Amlodipine Besylate 5 mg 11/22/19 21:00 12/01/19 08:49 Norvasc PO 5 mg BID MICHAEL Administration Artificial Tears 1 drop 11/25/19 21:00 12/01/19 08:50 Tears Naturale EA EYE 1 drop TID MICHAEL Administration Clonidine 0.1 mg 11/22/19 13:32 11/28/19 23:27 Catapres PO 0.1 mg Q4H PRN Administration SBP GREATER THAN 160 Cyanocobalamin 1,000 mcg 11/25/19 09:00 12/01/19 08:49 Vitamin B-12 PO 1,000 mcg DAILY MICHAEL Administration Folic Acid 1 mg 11/25/19 09:00 12/01/19 08:49 Folvite PO 1 mg DAILY MICHAEL Administration Hydralazine HCl 10 mg 11/21/19 07:35 11/25/19 04:33 Apresoline SLOW IVP 10 mg Q4H PRN Administration Blood Pressure Labetalol HCl 10 mg 11/21/19 11:59 11/23/19 02:15 Normodyne SLOW IVP 10 mg Q4H PRN Administration SBP > 140 Multivitamins 1 tab 11/24/19 09:00 12/01/19 08:49 Theragran PO 1 tab DAILY MICHAEL Administration Pantoprazole Sodium 40 mg 11/23/19 09:00 12/01/19 08:49 Protonix PO 40 mg DAILY MICHAEL Administration Polyethylene Glycol 17 gm 11/28/19 14:17 11/29/19 12:10 Miralax PO 17 gm DAILYPRN PRN Administration Constipation Senna/Docusate Sodium 2 tab 11/28/19 21:00 12/01/19 08:49 Senokot S PO 2 tab BID MICHAEL Administration - Exam Eye: PERRL, anicteric sclera Heart: RRR, no murmur, no gallops, no rubs, normal peripheral pulses Respiratory: CTAB, no wheezes, no rales, no ronchi, normal chest expansion, no tachypnea, normal percussion Gastrointestinal: soft, non-tender, non-distended, normal bowel sounds, no palpable masses, no hepatomegaly Extremities: no cyanosis, no clubbing, no edema Hosp A/P (1) Acute intracerebral hemorrhage Code(s): I61.9 - NONTRAUMATIC INTRACEREBRAL HEMORRHAGE, UNSPECIFIED Status: Acute (2) Hypertension Code(s): I10 - ESSENTIAL (PRIMARY) HYPERTENSION Status: Chronic (3) Cocaine abuse Code(s): F14.10 - COCAINE ABUSE, UNCOMPLICATED Status: Chronic - Plan * Acute Hemorrhagic CVA with Left sided weakness- continue PT/OT * HTN- blood pressure is controlled * Awaiting [facility] placement
[2019-12-02] MEDS: Senokot S 8.6-50 MG TAB PO SCH ×2 (09:28→20:23)
[2019-12-02] MEDS: Artificial Tears 18 DROP/0.9 ML EA EYE SCH ×3 (09:28→20:23)
[2019-12-02] MEDS: Multivit, Therapeutic 1 TAB PO SCH (09:29)
[2019-12-02] MEDS: Amlodipine 5 MG TAB PO SCH ×2 (09:29→20:23)
[2019-12-02] MEDS: Folic Acid 1 MG TAB PO SCH (09:29)
[2019-12-02] MEDS: Cyanocobalamin (Vitamin B-12) 1,000 MCG TAB PO SCH (09:29)
--- NOTE | 2019-12-02 12:28 | PDOC.HOSPP ---
- Subjective Encounter Date: 12/02/19 Encounter Time: 08:30 Subjective: Was seen today as a follow up for ICH with left sided hemiparesis. Does not have any current complaints. - Objective Vital Signs & Weight: Vital Signs (12 hours) Temp Pulse Pulse Pulse Resp BP BP 12/02/19 11:44 98.2 F 82 16 12/02/19 09:30 57 L 83 159/86 H 152/94 H 12/02/19 09:29 90 12/02/19 08:00 98.0 F 90 14 12/02/19 04:00 98.2 F 82 18 BP Pulse Ox 12/02/19 11:44 138/88 94 L 12/02/19 09:30 92 L 12/02/19 09:29 12/02/19 08:00 140/94 H 92 L 12/02/19 04:00 140/97 H 94 L Weight Weight 208 lb 4.8 oz Most Recent Monitor Data Heart Rate from ECG 98 NIBP 125/86 NIBP BP-Mean 99 Respiration from ECG 20 SpO2 100 I&O: 12/01/19 12/02/19 12/03/19 06:59 06:59 06:59 Intake Total 735 1500 100 Output Total 200 600 250 Balance 535 900 -150 Result Diagrams: 11/29/19 04:31 11/28/19 22:06 Hospitalist ROS - Medication Medications: Active Medications Generic Name Dose Route Start Last Admin Trade Name Freq PRN Reason Stop Dose Admin Amlodipine Besylate 5 mg 11/22/19 21:00 12/02/19 09:29 Norvasc PO 5 mg BID MICHAEL Administration Artificial Tears 1 drop 11/25/19 21:00 12/02/19 09:28 Tears Naturale EA EYE Not Given TID MICHAEL Clonidine 0.1 mg 11/22/19 13:32 11/28/19 23:27 Catapres PO 0.1 mg Q4H PRN Administration SBP GREATER THAN 160 Cyanocobalamin 1,000 mcg 11/25/19 09:00 12/02/19 09:29 Vitamin B-12 PO 1,000 mcg DAILY MICHAEL Administration Folic Acid 1 mg 11/25/19 09:00 12/02/19 09:29 Folvite PO 1 mg DAILY MICHAEL Administration Hydralazine HCl 10 mg 11/21/19 07:35 11/25/19 04:33 Apresoline SLOW IVP 10 mg Q4H PRN Administration Blood Pressure Labetalol HCl 10 mg 11/21/19 11:59 11/23/19 02:15 Normodyne SLOW IVP 10 mg Q4H PRN Administration SBP > 140 Multivitamins 1 tab 11/24/19 09:00 12/02/19 09:29 Theragran PO 1 tab DAILY MICHAEL Administration Pantoprazole Sodium 40 mg 11/23/19 09:00 12/02/19 09:29 Protonix PO 40 mg DAILY MICHAEL Administration Polyethylene Glycol 17 gm 11/28/19 14:17 11/29/19 12:10 Miralax PO 17 gm DAILYPRN PRN Administration Constipation Senna/Docusate Sodium 2 tab 11/28/19 21:00 12/02/19 09:28 Senokot S PO Not Given BID MICHAEL - Exam General Appearance: NAD, awake alert ENT: normocephalic atraumatic, moist mucosa Neck: supple, symmetric Heart: RRR, no murmur, normal peripheral pulses Respiratory: CTAB, no wheezes, no rales Gastrointestinal: soft, non-tender, normal bowel sounds Skin: normal turgor, no lesions Neurological: cranial nerve grossly intact, normal sensation to touch Musculoskeletal: normal tone Musculoskeletal - other findings: LUE and LLE weakness Psychiatric: A&O x 3 Hosp A/P (1) Acute intracerebral hemorrhage Code(s): I61.9 - NONTRAUMATIC INTRACEREBRAL HEMORRHAGE, UNSPECIFIED Status: Acute (2) Hypertension Code(s): I10 - ESSENTIAL (PRIMARY) HYPERTENSION Status: Chronic Qualifiers: Hypertension type: essential hypertension Qualified Code(s): I10 - Essential (primary) hypertension (3) Cocaine abuse Code(s): F14.10 - COCAINE ABUSE, UNCOMPLICATED Status: Chronic - Plan * Acute ICH with left sided hemiparesis: Will continue to work with PT/OT * HTN: Continue to monitor and treat, BP is controlled at this time with scheduled Norvasc * Await [facility] bed placement
[2019-12-03] MEDS: Folic Acid 1 MG TAB PO SCH (09:30)
[2019-12-03] MEDS: Senokot S 8.6-50 MG TAB PO SCH ×2 (09:30→21:21)
[2019-12-03] MEDS: Multivit, Therapeutic 1 TAB PO SCH (09:30)
[2019-12-03] MEDS: Cyanocobalamin (Vitamin B-12) 1,000 MCG TAB PO SCH (09:30)
[2019-12-03] MEDS: Amlodipine 5 MG TAB PO SCH ×2 (09:30→21:22)
[2019-12-03] MEDS: Artificial Tears 18 DROP/0.9 ML EA EYE SCH ×3 (09:31→21:19)
--- NOTE | 2019-12-03 09:41 | PDOC.HOSPP ---
- Subjective Encounter Date: 12/03/19 Encounter Time: 08:45 Subjective: Follow up on patient with ICH and left hemiparesis. No complaints overnight or currently. - Objective Vital Signs & Weight: Vital Signs (12 hours) Temp Pulse Resp BP Pulse Ox 12/03/19 09:30 91 12/03/19 07:40 98.1 F 91 20 138/86 97 12/03/19 04:00 97.5 F L 80 18 146/90 H 92 L 12/02/19 23:27 97.9 F 83 18 154/91 H 94 L 12/02/19 22:00 135/90 Weight Admit Weight 216 lb 3.2 oz Weight 207 lb Most Recent Monitor Data Heart Rate from ECG 98 NIBP 125/86 NIBP BP-Mean 99 Respiration from ECG 20 SpO2 100 I&O: 12/02/19 12/03/19 12/04/19 06:59 06:59 06:59 Intake Total 1500 420 100 Output Total 600 1050 100 Balance 900 -630 0 Result Diagrams: 11/29/19 04:31 11/28/19 22:06 Hospitalist ROS - Medication Medications: Active Medications Generic Name Dose Route Start Last Admin Trade Name Freq PRN Reason Stop Dose Admin Amlodipine Besylate 5 mg 11/22/19 21:00 12/03/19 09:30 Norvasc PO 5 mg BID MICHAEL Administration Artificial Tears 1 drop 11/25/19 21:00 12/03/19 09:31 Tears Naturale EA EYE Not Given TID MICHAEL Clonidine 0.1 mg 11/22/19 13:32 11/28/19 23:27 Catapres PO 0.1 mg Q4H PRN Administration SBP GREATER THAN 160 Cyanocobalamin 1,000 mcg 11/25/19 09:00 12/03/19 09:30 Vitamin B-12 PO 1,000 mcg DAILY MICHAEL Administration Folic Acid 1 mg 11/25/19 09:00 12/03/19 09:30 Folvite PO 1 mg DAILY MICHAEL Administration Hydralazine HCl 10 mg 11/21/19 07:35 11/25/19 04:33 Apresoline SLOW IVP 10 mg Q4H PRN Administration Blood Pressure Labetalol HCl 10 mg 11/21/19 11:59 11/23/19 02:15 Normodyne SLOW IVP 10 mg Q4H PRN Administration SBP > 140 Multivitamins 1 tab 11/24/19 09:00 12/03/19 09:30 Theragran PO 1 tab DAILY MICHAEL Administration Pantoprazole Sodium 40 mg 11/23/19 09:00 12/03/19 09:30 Protonix PO 40 mg DAILY MICHAEL Administration Polyethylene Glycol 17 gm 11/28/19 14:17 11/29/19 12:10 Miralax PO 17 gm DAILYPRN PRN Administration Constipation Senna/Docusate Sodium 2 tab 11/28/19 21:00 12/03/19 09:30 Senokot S PO 2 tab BID MICHAEL Administration - Exam General Appearance: NAD, awake alert ENT: normocephalic atraumatic, moist mucosa Neck: supple, symmetric, no JVD, no lymphadenopathy Heart: RRR, no murmur, no gallops, no rubs Respiratory: CTAB, no wheezes, no rales, no ronchi Gastrointestinal: soft, non-tender, non-distended, normal bowel sounds Extremities: 1+ LE edema Neurological: cranial nerve grossly intact Musculoskeletal: normal tone, no muscle wasting Musculoskeletal - other findings: left sided extremity weakness Psychiatric: normal affect, normal behavior Hosp A/P (1) Acute intracerebral hemorrhage Code(s): I61.9 - NONTRAUMATIC INTRACEREBRAL HEMORRHAGE, UNSPECIFIED Status: Acute (2) Hypertension Code(s): I10 - ESSENTIAL (PRIMARY) HYPERTENSION Status: Chronic Qualifiers: Hypertension type: essential hypertension Qualified Code(s): I10 - Essential (primary) hypertension (3) Cocaine abuse Code(s): F14.10 - COCAINE ABUSE, UNCOMPLICATED Status: Chronic - Plan * Acute ICH with left sided hemiparesis: Will continue to work with PT/OT * HTN: Continue to monitor and treat, BP is controlled at this time with scheduled Norvasc * Await [facility] placement or further recommendation from PT for possible outpatient therapy * Agree with above. Patient seen and examined. He does not have any new complaints. On exam the weakness in the left arm has improved. Discussed with the Licensing Registration Examiner. Unfortunately he has not been approved for [facility]. He has a sister who lives in [place]. He will be reaching out to her to see if he can stay with her and get out patient PT/OT.
[2019-12-04 05:08] VITALS: BMI 28.7
[2019-12-04] MEDS: Artificial Tears 18 DROP/0.9 ML EA EYE SCH ×3 (09:53→20:29)
[2019-12-04] MEDS: Multivit, Therapeutic 1 TAB PO SCH (09:54)
[2019-12-04] MEDS: Folic Acid 1 MG TAB PO SCH (09:54)
[2019-12-04] MEDS: Senokot S 8.6-50 MG TAB PO SCH ×2 (09:54→20:29)
[2019-12-04] MEDS: Amlodipine 5 MG TAB PO SCH ×2 (09:55→20:29)
[2019-12-04] MEDS: Cyanocobalamin (Vitamin B-12) 1,000 MCG TAB PO SCH (09:55)
--- NOTE | 2019-12-04 14:06 | PDOC.HOSPP ---
- Subjective Encounter Date: 12/04/19 Encounter Time: 13:45 Subjective: Mr Downs is seen as a follow up today for ICH and HTN. He is doing very well and laughing and joking with me. He states his sister is arranging equipment for him at her house and she is ready once outpatient therapy is arranged. Mr Downs also states he is feeling slightly stronger on his left side but still not back to baseline. - Objective Vital Signs & Weight: Vital Signs (12 hours) Temp Pulse Resp BP BP Pulse Ox 12/04/19 11:30 97.9 F 93 16 152/92 H 94 L 12/04/19 09:55 88 138/97 H 12/04/19 08:00 95 12/04/19 07:38 97.5 F L 92 16 139/91 H 95 12/04/19 03:37 97.6 F 76 20 140/90 95 Weight Admit Weight 216 lb 3.2 oz Weight 211 lb 12.8 oz Most Recent Monitor Data Heart Rate from ECG 98 NIBP 125/86 NIBP BP-Mean 99 Respiration from ECG 20 SpO2 100 I&O: 12/03/19 12/04/19 12/05/19 06:59 06:59 06:59 Intake Total 420 600 Output Total 1050 600 Balance -630 0 Result Diagrams: 11/29/19 04:31 11/28/19 22:06 EKG Reviewed by me: Yes Hospitalist ROS - Medication Medications: Active Medications Generic Name Dose Route Start Last Admin Trade Name Freq PRN Reason Stop Dose Admin Amlodipine Besylate 5 mg 11/22/19 21:00 12/04/19 09:55 Norvasc PO 5 mg BID MICHAEL Administration Artificial Tears 1 drop 11/25/19 21:00 12/04/19 09:53 Tears Naturale EA EYE Not Given TID MICHAEL Clonidine 0.1 mg 11/22/19 13:32 11/28/19 23:27 Catapres PO 0.1 mg Q4H PRN Administration SBP GREATER THAN 160 Cyanocobalamin 1,000 mcg 11/25/19 09:00 12/04/19 09:55 Vitamin B-12 PO 1,000 mcg DAILY MICHAEL Administration Folic Acid 1 mg 11/25/19 09:00 12/04/19 09:54 Folvite PO 1 mg DAILY MICHAEL Administration Hydralazine HCl 10 mg 11/21/19 07:35 04/20/20 04:33 Apresoline SLOW IVP 10 mg Q4H PRN Administration Blood Pressure Labetalol HCl 10 mg 11/21/19 11:59 11/23/19 02:15 Normodyne SLOW IVP 10 mg Q4H PRN Administration SBP > 140 Multivitamins 1 tab 11/24/19 09:00 12/04/19 09:54 Theragran PO 1 tab DAILY MICHAEL Administration Pantoprazole Sodium 40 mg 11/23/19 09:00 12/04/19 09:54 Protonix PO 40 mg DAILY MICHAEL Administration Polyethylene Glycol 17 gm 11/28/19 14:17 11/29/19 12:10 Miralax PO 17 gm DAILYPRN PRN Administration Constipation Senna/Docusate Sodium 2 tab 11/28/19 21:00 12/04/19 09:54 Senokot S PO Not Given BID MICHAEL - Exam General Appearance: NAD, awake alert Eye: PERRL, anicteric sclera ENT: normocephalic atraumatic, moist mucosa Neck: supple, symmetric, no JVD, no lymphadenopathy Heart: RRR, no murmur, no gallops, normal peripheral pulses Respiratory: CTAB, no wheezes, no rales, no ronchi Gastrointestinal: soft, non-tender, non-distended, normal bowel sounds Extremities: no cyanosis, no edema Skin: normal turgor, no lesions Neurological: no focal deficits Neurological - other findings: slightly weaker glove maker on left side Musculoskeletal: normal tone, no muscle wasting Psychiatric: normal affect, normal behavior Hosp A/P (1) Acute intracerebral hemorrhage Code(s): I61.9 - NONTRAUMATIC INTRACEREBRAL HEMORRHAGE, UNSPECIFIED Status: Acute (2) Hypertension Code(s): I10 - ESSENTIAL (PRIMARY) HYPERTENSION Status: Chronic Qualifiers: Hypertension type: essential hypertension Qualified Code(s): I10 - Essential (primary) hypertension (3) Cocaine abuse Code(s): F14.10 - COCAINE ABUSE, UNCOMPLICATED Status: Chronic - Plan * Acute ICH with left sided hemiparesis: Will continue to work with PT/OT * HTN: Continue to monitor and treat, BP is controlled at this time with scheduled medications, no PRN medictions used at this time * Await CM for outpatient therapy arrangements, sister is preparing home for patient's discharge * * Patient seen and examined and discussed with Ritu WALLACE. Mr. Downs is doing quite well. He does not have any complaints. On exam the strength in his left arm has improved, and he has better coordination in the arm. He has been ambulating well with PT. He will be going home under the care of his fiancee. Plan is for discharge home tomorrow.
[2019-12-05 07:41] LABS: #Eosinphils 0.1 thou/uL (0.0-0.7); #Lymphocytes 1.5 thou/uL (1.20-3.40); #Monocytes 0.6 thou/uL (0.11-0.59); #Neutrophils 3.2 thou/uL (1.40-6.50); %Basophils 0.5 % (0.0-1.0); %Lymphocytes 27.5 % (21.0-51.0); %Monocytes 11.3 % (0.0-10.0); %Neutrophils 58.7 % (42.0-75.0); Hemoglobin 15.2 g/dL (14.0-18.0); Mean Corpuscular Hemoglobin 30.4 pg (27.0-31.0); Mean Corpuscular Volume 92.1 fL (78.0-98.0); Mean Platelet Volume 11.1 fL (7.4-10.4); Platelet Count 106 thou/uL (130-400); White Blood Cell (WBC) Count 5.5 thou/uL (4.8-10.8)
[2019-12-05 07:54] LABS: Anion Gap 12 mmol/L (10-20); BUN (Urea Nitrogen) 12 mg/dL (8.4-25.7); Calc. Creatinine Clearance 116 mL/min (70-130); Calcium 9.5 mg/dL (7.8-10.44); Carbon Dioxide 26 mmol/L (22-29); Chloride 104 mmol/L (98-107); Estimated GFR-MDRD 82; Glucose 105 mg/dL (70-105); Potassium 3.6 mmol/L (3.5-5.1); Sodium 138 mmol/L (136-145)
[2019-12-05] MEDS: Multivit, Therapeutic 1 TAB PO SCH (09:04)
[2019-12-05] MEDS: Cyanocobalamin (Vitamin B-12) 1,000 MCG TAB PO SCH (09:04)
[2019-12-05] MEDS: Amlodipine 5 MG TAB PO SCH (09:04)
[2019-12-05] MEDS: Folic Acid 1 MG TAB PO SCH (09:04)
[2019-12-05] MEDS: Artificial Tears 18 DROP/0.9 ML EA EYE SCH (09:05)
[2019-12-05] MEDS: Senokot S 8.6-50 MG TAB PO SCH (09:05)
[2019-12-05 11:37] VITALS: TEMP 98.5
--- NOTE | 2019-12-05 12:57 | PDOC.HOSPP ---
- Subjective Encounter Date: 12/05/19 Encounter Time: 12:55 Subjective: Mr. Downs was seen today in follow-up of hemorrhagic stroke. He does not have any complaints this afternoon. - Objective Vital Signs & Weight: Vital Signs (12 hours) Temp Pulse Resp BP Pulse Ox 12/05/19 11:36 98.5 F 87 16 146/91 H 94 L 12/05/19 09:04 82 12/05/19 08:15 95 12/05/19 07:55 98.3 F 82 16 146/81 H 95 12/05/19 04:00 98.2 F 86 16 138/86 95 Weight Admit Weight 216 lb 3.2 oz Weight 211 lb 12.8 oz Most Recent Monitor Data Heart Rate from ECG 98 NIBP 125/86 NIBP BP-Mean 99 Respiration from ECG 20 SpO2 100 I&O: 12/04/19 12/05/19 12/06/19 06:59 06:59 06:59 Intake Total 600 540 Output Total 600 600 Balance 0 -60 Result Diagrams: 12/05/19 07:20 12/05/19 07:20 Hospitalist ROS - Medication Medications: Active Medications Generic Name Dose Route Start Last Admin Trade Name Freq PRN Reason Stop Dose Admin Amlodipine Besylate 5 mg 11/22/19 21:00 12/05/19 09:04 Norvasc PO 5 mg BID MICHAEL Administration Artificial Tears 1 drop 11/25/19 21:00 12/05/19 09:05 Tears Naturale EA EYE Not Given TID MICHAEL Clonidine 0.1 mg 11/22/19 13:32 11/28/19 23:27 Catapres PO 0.1 mg Q4H PRN Administration SBP GREATER THAN 160 Cyanocobalamin 1,000 mcg 11/25/19 09:00 12/05/19 09:04 Vitamin B-12 PO 1,000 mcg DAILY MICHAEL Administration Folic Acid 1 mg 11/25/19 09:00 12/05/19 09:04 Folvite PO 1 mg DAILY MICHALE Administration Hydralazine HCl 10 mg 11/21/19 07:35 11/25/19 04:33 Apresoline SLOW IVP 10 mg Q4H PRN Administration Blood Pressure Labetalol HCl 10 mg 11/21/19 11:59 11/23/19 02:15 Normodyne SLOW IVP 10 mg Q4H PRN Administration SBP > 140 Multivitamins 1 tab 11/24/19 09:00 12/05/19 09:04 Theragran PO 1 tab DAILY MICHAEL Administration Pantoprazole Sodium 40 mg 11/23/19 09:00 12/05/19 09:04 Protonix PO 40 mg DAILY MICHAEL Administration Polyethylene Glycol 17 gm 11/28/19 14:17 11/29/19 12:10 Miralax PO 17 gm DAILYPRN PRN Administration Constipation Senna/Docusate Sodium 2 tab 11/28/19 21:00 12/05/19 09:05 Senokot S PO Not Given BID MICHAEL - Exam Eye: PERRL, anicteric sclera Heart: RRR, no murmur, no gallops, no rubs, normal peripheral pulses Respiratory: CTAB, no wheezes, no rales, no ronchi, normal chest expansion, no tachypnea Gastrointestinal: soft, non-tender, non-distended, normal bowel sounds, no palpable masses, no hepatomegaly Hosp A/P (1) Acute intracerebral hemorrhage Code(s): I61.9 - NONTRAUMATIC INTRACEREBRAL HEMORRHAGE, UNSPECIFIED Status: Acute (2) Hypertension Code(s): I10 - ESSENTIAL (PRIMARY) HYPERTENSION Status: Chronic Qualifiers: Hypertension type: essential hypertension Qualified Code(s): I10 - Essential (primary) hypertension (3) Cocaine abuse Code(s): F14.10 - COCAINE ABUSE, UNCOMPLICATED Status: Chronic - Plan * Acute Hemorrhagic CVA- improved- his muscle strength continues to improve * HTN- blood pressure is stable * Stable for discharge home.
[2019-12-05 12:58] VITALS: BP 170/89
--- NOTE | 2019-12-05 19:04 | DIS ---
DATE OF ADMISSION: 11/21/2019 DATE OF DISCHARGE: 12/05/2019 PRIMARY CARE PHYSICIAN: Dr. Mary Grace Pickering. DISCHARGE DISPOSITION: Home. DISCHARGE DIAGNOSES: 1. 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 2. Hypertension. 3. Cocaine abuse. DISCHARGE MEDICATIONS: Include amlodipine 5 mg p.o. b.i.d. DIAGNOSTIC IMPRESSION: The imaging done during the hospital stay; the patient had a CT scan of the brain, which demonstrated a hemorrhagic infarct involving the right thalamus. There was some small-vessel white matter ischemic change. The patient had a repeat CT, this demonstrating stability of the thalamic bleed on the following day. CODE STATUS: Full code. ALLERGIES: NO KNOWN DRUG ALLERGIES. HOSPITAL COURSE: Mr. Gr is a pleasant 59-year-old gentleman, who presented to the emergency room after suffering a fall. He was found to have a right thalamic hemorrhage and this is felt to be due to an elevated blood pressure. It was later found that the patient had used crack cocaine prior to this happening and this is likely the etiology of the stroke. He was seen by Neurosurgery and actually admitted to the Neurosurgery Service, initially, he was not considered a surgical candidate. During the course of his hospital stay, the left-sided weakness improved dramatically, where initially he had almost complete flaccid paralysis of the left upper extremity and significant weakness of the left leg. By the time of discharge, he was able to lift and maneuver his left arm, albeit it was weaker than that of the right. His hospital stay was complicated by his uninsured status. Most of the days were spent trying to find an inpatient rehabilitation facility. Unfortunately, by the time he was ready for discharge, we were unable to find an inpatient location, but his strength had improved significantly to the point where he no longer needed inpatient rehab. He will be discharged in the care of his fiancee and he will be receiving outpatient physical therapy. He was visited by the financial team here at the hospital which were helping with the arrangements for him to afford his medications as well as to receive the therapy he needed at home. He is to also follow up with his primary care doctor. His blood pressure medicine was changed to avoid hyponatremia risk with the thiazide diuretic in the Ziac. Therefore was switched to amlodipine. It may be switched back to Ziac once he is several months out from the stroke. Job ID: [id number]
== END 2019-12-05 14:16 | disposition home or self-care (01) | DRG 917 ==
LOC: ERS 06:33 → IMCU/EMU 07:23 → 2SE 11-28 12:21
PROVIDERS: ADMIT Neurological Surgery; ATTEND Internal Medicine
DX: T40.5X1A Poisoning by cocaine, accidental (unintentional), initial encounter (principal); I61.8 Other nontraumatic intracerebral hemorrhage; G81.94 Hemiplegia, unspecified affecting left nondominant side; F14.10 Cocaine abuse, uncomplicated; K21.9 Gastro-esophageal reflux disease without esophagitis; R29.810 Facial weakness; R47.81 Slurred speech; R40.2142 Coma scale, eyes open, spontaneous, at arrival to emergency department; R40.2362 Coma scale, best motor response, obeys commands, at arrival to emergency department; R40.2252 Coma scale, best verbal response, oriented, at arrival to emergency department; I12.9 Hypertensive chronic kidney disease with stage 1 through stage 4 chronic kidney disease, or unspecified chronic kidney disease; N18.2 Chronic kidney disease, stage 2 (mild); D69.6 Thrombocytopenia, unspecified; H53.9 Unspecified visual disturbance; I16.0 Hypertensive urgency; E87.6 Hypokalemia; Z90.49 Acquired absence of other specified parts of digestive tract; Z87.891 Personal history of nicotine dependence; Z91.14 Patient's other noncompliance with medication regimen; Z71.51 Drug abuse counseling and surveillance of drug abuser
CPT/HCPCS: 36415; 70450; 80048; 80053; 80306; 82550; 82553; 83735; 84484; 85007; 85014; 85018; 85025; 85027; 85049; 85060; 85610; 85730; 93005; 96374; C9113; J0360

== ENCOUNTER 2020-12-17 17:48 | Emergency (ER) | payer MEDICAID | END 2020-12-17 21:21 | disposition short-term general hospital (02) | LOC: ERS 17:48 | DX: I63.9 Cerebral infarction, unspecified (principal); I67.1 Cerebral aneurysm, nonruptured; I10 Essential (primary) hypertension; Z87.891 Personal history of nicotine dependence | CPT/HCPCS: 99285 ==

== ENCOUNTER 2021-06-14 11:07 | Outpatient (CLI) | payer OTHER ==
[2021-06-14 14:39] LABS: Hemoglobin 15.8 g/dL (13.5-17.5); Mean Corpuscular Hemoglobin 27.8 pg (27.0-33.0); Mean Corpuscular Volume 86.8 fl (81.2-95.1); Platelet Count 95 10x3/uL (150-450); RBC Distribution Width 15.5 % (11.5-14.5); Red Blood Cell (RBC) Count 5.68 10x6/uL (4.32-5.72)
[2021-06-14 15:26] LABS: Eosinophils 1 % (0-10); Lymphocytes 21 % (21-51); Monocytes 16 % (0-10); Reactive Lymphocytes 13 % (0-10)
[2021-06-14 15:28] LABS: Giant Platelets SLIGHT; Manual Diff?? YES; Neutrophil 49 % (42-75); RBC Morphology Normal
[2021-06-14 15:29] LABS: ALT (SGPT) 43 U/L (8-55); AST (SGOT) 31 U/L (5-34); Albumin 4.8 g/dL (3.5-5.0); Alkaline Phosphatase 91 U/L (40-110); Anion Gap 14 mmol/L (10-20); BUN (Urea Nitrogen) 15 mg/dL (8.4-25.7); Bilirubin, Total 0.7 mg/dL (0.2-1.2); Calc. Creatinine Clearance 0 mL/min (70-130); Calcium 9.5 mg/dL (7.8-10.44); Carbon Dioxide 23 mmol/L (22-29); Chloride 108 mmol/L (98-107); Globulin 3.7 g/dL (2.4-3.5); Glucose 86 mg/dL (70-105); Protein, Total 8.5 g/dL (6.0-8.3); Sodium 141 mmol/L (136-145)
[2021-06-14 20:28] LABS: SARS-CoV-2 PCR by NAA Not Detected (NotDetected)
== END 2021-06-14 11:08 | disposition home or self-care (01) ==
LOC: LABBT 11:07
PROVIDERS: ATTEND Specialist
DX: Z01.818 Encounter for other preprocedural examination (principal); K80.20 Calculus of gallbladder without cholecystitis without obstruction; Z20.822 Contact with and (suspected) exposure to COVID-19
CPT/HCPCS: 80053; 85025; 93005; 93010; U0003; U0005

== ENCOUNTER 2021-06-17 07:21 | Inpatient (IN) | payer OTHER ==
[2021-06-16 10:38] VITALS: BMI 29.8
[2021-06-17] MEDS ORDERED: Ketorolac Tromethamine 30 MG/ML VIAL ONE ×2 (08:00→15:15)
[2021-06-17] MEDS ORDERED: Acetaminophen 500 MG TAB ONE (08:00)
[2021-06-17] MEDS ORDERED: Bupivacaine 0.25% HCL 30 ML VIAL ONE (10:56)
[2021-06-17] MEDS ORDERED: Lidocaine 1% w/Epinephrine 1:100K 20 ML VIAL ONE (10:56)
[2021-06-17] MEDS ORDERED: Midazolam HCl 2 mg/2 ml Vial ONE (11:00)
[2021-06-17] MEDS ORDERED: Fentanyl 100 MCG/2 ML VIAL ONE (11:00)
[2021-06-17] MEDS ORDERED: Glycopyrrolate 0.2 MG/ML 5 ML SYRINGE ONE (11:22)
[2021-06-17] MEDS ORDERED: PHENYLEPHRINE-NS 100 MCG/ML 10 ML SYRINGE ONE (11:22)
[2021-06-17] MEDS ORDERED: Dexamethasone 20 MG/5 ML VIAL ONE (11:22)
[2021-06-17] MEDS ORDERED: Ondansetron PF 4 MG/2 ML Vial ONE ×2 (11:22→14:59)
[2021-06-17] MEDS ORDERED: Rocuronium Bromide 10 MG/ML (10ML VIAL) ONE (11:22)
[2021-06-17] MEDS ORDERED: PROPOFOL 200 MG/20 ML VIAL ONE (11:22)
[2021-06-17] MEDS ORDERED: Lidocaine 1% PF 5 ML VIAL ONE (11:22)
[2021-06-17] MEDS ORDERED: HYDROmorphone 2 MG/ML VIAL ONE (12:05)
[2021-06-17] MEDS ORDERED: hydrALAZINE 20 MG/ML VIAL SLOW IVP PRN (17:19)
[2021-06-17] MEDS ORDERED: Promethazine HCl 25 MG/ML VIAL IM PRN (17:19)
[2021-06-17] MEDS ORDERED: Mag-Al 1200 mg/1200 mg/30 ML UDCUP PO PRN (17:19)
[2021-06-17] MEDS ORDERED: Dextrose 50% Abboject 50 ML SYRINGE SLOW IVP PRN (17:19)
[2021-06-17] MEDS ORDERED: Dextrose 5% in Water 1,000 ML IV PRN (17:19)
[2021-06-17] MEDS ORDERED: Calcium Carbonate 500 MG ChewTAB PO PRN (17:19)
[2021-06-17] MEDS ORDERED: Morphine 4 MG/ML VIAL SLOW IVP PRN (17:25)
[2021-06-17] MEDS: Ketorolac Tromethamine 30 MG/ML VIAL IVP SCH (18:40)
[2021-06-17] MEDS: HYDROcodone/Acetaminophen 10/325 mg Tablet PO PRN (18:43)
[2021-06-17] MEDS: Lactated Ringer's 1,000 ML IV SCH (19:24)
[2021-06-17] MEDS: Famotidine 20 MG TAB PO SCH (21:06)
[2021-06-17] MEDS: Morphine 4 MG/ML VIAL SLOW IVP PRN (21:06)
[2021-06-17] MEDS: Enoxaparin Sodium 40 MG/0.4 ML SYRINGE SC SCH (21:06)
[2021-06-17] MEDS: Famotidine/PF 20 mg/2ml Vial SLOW IVP SCH (21:46)
[2021-06-17] MEDS: Ondansetron PF 4 MG/2 ML Vial IVP PRN (22:31)
[2021-06-18] MEDS: Lactated Ringer's 1,000 ML IV SCH (01:18)
[2021-06-18] MEDS: Morphine 4 MG/ML VIAL SLOW IVP PRN ×2 (01:19→06:24)
[2021-06-18] MEDS: Ketorolac Tromethamine 30 MG/ML VIAL IVP SCH ×4 (01:19→18:32)
[2021-06-18] MEDS: HYDROcodone/Acetaminophen 10/325 mg Tablet PO PRN (01:20)
[2021-06-18 06:24] LABS: ALT (SGPT) 78 U/L (8-55); AST (SGOT) 64 U/L (5-34); Albumin 3.8 g/dL (3.5-5.0); Alkaline Phosphatase 77 U/L (40-110); Anion Gap 10 mmol/L (10-20); BUN (Urea Nitrogen) 16 mg/dL (8.4-25.7); Bilirubin, Total 0.7 mg/dL (0.2-1.2); Calc. Creatinine Clearance 118 mL/min (70-130); Calcium 9.1 mg/dL (7.8-10.44); Carbon Dioxide 23 mmol/L (22-29); Chloride 104 mmol/L (98-107); Globulin 3.2 g/dL (2.4-3.5); Glucose 130 mg/dL (70-105); Potassium 4.3 mmol/L (3.5-5.1); Sodium 133 mmol/L (136-145)
[2021-06-18] MEDS: Ondansetron PF 4 MG/2 ML Vial IVP PRN (06:24)
[2021-06-18 06:56] LABS: Mean Corpuscular HGB CONC 32.3 g/dL (32.0-36.0); Mean Corpuscular Hemoglobin 28.5 pg (27.0-31.0); Mean Corpuscular Volume 88.3 fL (78.0-98.0); Platelet Count 80 thou/uL (130-400); RBC Distribution Width 14.3 % (11.5-14.5); Red Blood Cell (RBC) Count 4.55 mill/uL (4.70-6.10); White Blood Cell (WBC) Count 16.8 thou/uL (4.8-10.8)
[2021-06-18 06:57] LABS: Band 11 % (5-11); Lymphocytes 8 % (21-51); MDiff Complete? YES; Monocytes 10 % (0-10); Neutrophil 71 % (42-75); Platelet Morphology Comment Appears Decreased; RBC Morphology Normal
[2021-06-18] MEDS ORDERED: Tamsulosin HCl 0.4 MG CAP PO SCH (08:15)
[2021-06-18] MEDS: Famotidine/PF 20 mg/2ml Vial SLOW IVP SCH ×2 (08:44→21:32)
[2021-06-18] MEDS: Amlodipine 10 MG TAB PO SCH (08:44)
[2021-06-18] MEDS: Famotidine 20 MG TAB PO SCH ×3 (12:34→21:12)
[2021-06-18] MEDS: Enoxaparin Sodium 40 MG/0.4 ML SYRINGE SC SCH (21:13)
[2021-06-19] MEDS: HYDROcodone/Acetaminophen 10/325 mg Tablet PO PRN ×2 (03:57→09:20)
[2021-06-19] MEDS: Lactated Ringer's 1,000 ML IV SCH (03:59)
[2021-06-19 07:02] LABS: ALT (SGPT) 93 U/L (8-55); AST (SGOT) 66 U/L (5-34); Albumin 3.8 g/dL (3.5-5.0); Alkaline Phosphatase 76 U/L (40-110); Anion Gap 11 mmol/L (10-20); BUN (Urea Nitrogen) 13 mg/dL (8.4-25.7); Bilirubin, Total 0.9 mg/dL (0.2-1.2); Calc. Creatinine Clearance 123 mL/min (70-130); Calcium 8.9 mg/dL (7.8-10.44); Carbon Dioxide 26 mmol/L (22-29); Chloride 104 mmol/L (98-107); Globulin 3.3 g/dL (2.4-3.5); Glucose 122 mg/dL (70-105); Potassium 3.7 mmol/L (3.5-5.1); Protein, Total 7.1 g/dL (6.0-8.3); Sodium 137 mmol/L (136-145)
[2021-06-19 07:10] LABS: Hemoglobin 12.1 g/dL (14.0-18.0); Mean Corpuscular HGB CONC 32.3 g/dL (32.0-36.0); Mean Corpuscular Hemoglobin 28.5 pg (27.0-31.0); Mean Corpuscular Volume 88.2 fL (78.0-98.0); RBC Distribution Width 14.6 % (11.5-14.5); Red Blood Cell (RBC) Count 4.26 mill/uL (4.70-6.10)
[2021-06-19 08:08] LABS: Band 1 % (5-11); Eosinophils 1 % (0-10); Lymphocytes 3 % (21-51); MDiff Complete? YES; Mean Platelet Volume 11.1 fL (7.4-10.4); Monocytes 26 % (0-10); Neutrophil 64 % (42-75); Platelet Count 71 thou/uL (130-400); Platelet Morphology Comment Appears Decreased; Reactive Lymphocytes 5 % (0-10); Vacuoles SLIGHT; White Blood Cell (WBC) Count 16.3 thou/uL (4.8-10.8)
[2021-06-19] MEDS: Tamsulosin HCl 0.4 MG CAP PO SCH (09:16)
[2021-06-19] MEDS: Amlodipine 10 MG TAB PO SCH (09:16)
[2021-06-19] MEDS: Famotidine 20 MG TAB PO SCH ×2 (09:16→20:48)
[2021-06-19] MEDS: Famotidine/PF 20 mg/2ml Vial SLOW IVP SCH ×2 (09:17→20:49)
[2021-06-19] MEDS ORDERED: Iopamidol-370 76% 500 ML 1 ML ONE (10:32)
[2021-06-19] MEDS: Enoxaparin Sodium 40 MG/0.4 ML SYRINGE SC SCH (20:48)
[2021-06-19] MEDS: Ondansetron PF 4 MG/2 ML Vial IVP PRN (20:50)
[2021-06-20] MEDS: Tamsulosin HCl 0.4 MG CAP PO SCH (09:09)
[2021-06-20] MEDS: HYDROcodone/Acetaminophen 10/325 mg Tablet PO PRN ×2 (09:09→16:32)
[2021-06-20] MEDS: Amlodipine 10 MG TAB PO SCH (09:09)
[2021-06-20] MEDS: Famotidine 20 MG TAB PO SCH ×2 (09:09→21:11)
[2021-06-20] MEDS ORDERED: Bisacodyl 5 MG TAB PO PRN (10:15)
[2021-06-20] MEDS ORDERED: Piperacillin/Tazobactam 3.375 GM in Sodium Chloride 0.9% 100 ML IVPB SCH (11:00)
[2021-06-20] MEDS: Famotidine/PF 20 mg/2ml Vial SLOW IVP SCH ×2 (11:05→21:19)
[2021-06-20] MEDS: Morphine 4 MG/ML VIAL SLOW IVP PRN ×2 (11:38→15:23)
[2021-06-20] MEDS: Ondansetron PF 4 MG/2 ML Vial IVP PRN (11:45)
[2021-06-20] MEDS: Piperacillin/Tazobactam 3.375 GM in Sodium Chloride 0.9% 100 ML IVPB SCH ×2 (15:24→23:26)
[2021-06-20] MEDS: Enoxaparin Sodium 40 MG/0.4 ML SYRINGE SC SCH (21:10)
[2021-06-20] MEDS: Metoprolol Tartrate 25 MG TAB PO SCH (21:11)
[2021-06-21] MEDS: Piperacillin/Tazobactam 3.375 GM in Sodium Chloride 0.9% 100 ML IVPB SCH ×3 (06:09→22:37)
[2021-06-21] MEDS: Metoprolol Tartrate 25 MG TAB PO SCH ×2 (08:39→20:18)
[2021-06-21] MEDS: Tamsulosin HCl 0.4 MG CAP PO SCH (08:41)
[2021-06-21] MEDS: Famotidine/PF 20 mg/2ml Vial SLOW IVP SCH ×2 (08:42→20:19)
[2021-06-21] MEDS: Amlodipine 10 MG TAB PO SCH (08:42)
[2021-06-21] MEDS: Famotidine 20 MG TAB PO SCH ×2 (08:42→20:18)
[2021-06-21] MEDS ORDERED: Bisacodyl 5 MG TAB PO SCH (09:00)
[2021-06-21] MEDS ORDERED: Metoprolol Tartrate 50 MG TAB PO SCH (09:00)
[2021-06-21] MEDS ORDERED: Polyethylene Glycol 3350 17 GM Packet PO SCH (14:15)
[2021-06-21] MEDS: HYDROcodone/Acetaminophen 10/325 mg Tablet PO PRN (14:57)
[2021-06-21] MEDS: Cholecalciferol 1,000 UNITS (25 MCG) TAB PO SCH (20:19)
[2021-06-21] MEDS: Enoxaparin Sodium 40 MG/0.4 ML SYRINGE SC SCH (22:32)
[2021-06-22] MEDS: Piperacillin/Tazobactam 3.375 GM in Sodium Chloride 0.9% 100 ML IVPB SCH ×3 (06:23→23:16)
[2021-06-22] MEDS: Metoprolol Tartrate 25 MG TAB PO SCH ×2 (08:01→20:49)
[2021-06-22] MEDS: Famotidine 20 MG TAB PO SCH ×2 (08:01→20:49)
[2021-06-22] MEDS: Amlodipine 10 MG TAB PO SCH (08:03)
[2021-06-22] MEDS: Tamsulosin HCl 0.4 MG CAP PO SCH (08:04)
[2021-06-22] MEDS: Polyethylene Glycol 3350 17 GM Packet PO SCH (08:04)
[2021-06-22] MEDS: Famotidine/PF 20 mg/2ml Vial SLOW IVP SCH ×2 (08:04→20:55)
[2021-06-22] MEDS ORDERED: Magnesium Citrate 300 ML BOT PO SCH (08:30)
[2021-06-22 09:00] LABS: Hemoglobin 8.5 g/dL (14.0-18.0); Mean Corpuscular HGB CONC 32.8 g/dL (32.0-36.0); Mean Corpuscular Hemoglobin 29.1 pg (27.0-31.0); Mean Corpuscular Volume 88.9 fL (78.0-98.0); Platelet Count 88 thou/uL (130-400); RBC Distribution Width 15.1 % (11.5-14.5); Red Blood Cell (RBC) Count 2.92 mill/uL (4.70-6.10); White Blood Cell (WBC) Count 12.1 thou/uL (4.8-10.8)
[2021-06-22 09:26] LABS: ALT (SGPT) 54 U/L (8-55); AST (SGOT) 33 U/L (5-34); Albumin 3.4 g/dL (3.5-5.0); Alkaline Phosphatase 72 U/L (40-110); Anion Gap 11 mmol/L (10-20); BUN (Urea Nitrogen) 14 mg/dL (8.4-25.7); Band 13 % (5-11); Bilirubin, Total 0.9 mg/dL (0.2-1.2); Calc. Creatinine Clearance 131 mL/min (70-130); Calcium 9.1 mg/dL (7.8-10.44); Carbon Dioxide 29 mmol/L (22-29); Chloride 101 mmol/L (98-107); Globulin 3.2 g/dL (2.4-3.5); Glucose 130 mg/dL (70-105); Large Platelets MODERATE; Lymphocytes 11 % (21-51); MDiff Complete? YES; Metamyelocyte 2 % (0-0); Monocytes 28 % (0-10); Neutrophil 46 % (42-75); Nucleated RBC 3 % (0); Platelet Morphology Comment Appears Decreased; Polychromasia MODERATE = 3-4 cells (100X) (0-2/hpf); Potassium 3.8 mmol/L (3.5-5.1); Protein, Total 6.6 g/dL (6.0-8.3); Sodium 137 mmol/L (136-145)
[2021-06-22] MEDS ORDERED: Ibuprofen 200 MG TAB PO PRN (11:41)
[2021-06-22] MEDS: Fleet Enema 133 ML BOT PR SCH ×3 (12:58→20:49)
[2021-06-22 14:19] LABS: SARS-CoV-2 PCR by NAA Not Detected (NotDetected)
[2021-06-22] MEDS: Cholecalciferol 1,000 UNITS (25 MCG) TAB PO SCH (20:49)
[2021-06-22] MEDS: Enoxaparin Sodium 40 MG/0.4 ML SYRINGE SC SCH (22:26)
[2021-06-23] MEDS: Fleet Enema 133 ML BOT PR SCH ×4 (00:36→15:48)
[2021-06-23] MEDS: Piperacillin/Tazobactam 3.375 GM in Sodium Chloride 0.9% 100 ML IVPB SCH ×3 (06:22→22:30)
[2021-06-23 06:29] LABS: MDiff Complete? YES; Mean Corpuscular HGB CONC 32.8 g/dL (32.0-36.0); Mean Corpuscular Hemoglobin 29.3 pg (27.0-31.0); Mean Corpuscular Volume 89.2 fL (78.0-98.0); Mean Platelet Volume 10.8 fL (7.4-10.4); Platelet Count 110 thou/uL (130-400); RBC Distribution Width 15.3 % (11.5-14.5); Red Blood Cell (RBC) Count 2.74 mill/uL (4.70-6.10); White Blood Cell (WBC) Count 10.1 thou/uL (4.8-10.8)
[2021-06-23 06:30] LABS: Band 1 % (5-11); Hypochromia SLIGHT = 6-15 cells (100X) (0-5/hpf); Lymphocytes 27 % (21-51); Monocytes 15 % (0-10); Neutrophil 57 % (42-75); Platelet Morphology Comment Appears Decreased
[2021-06-23 06:36] LABS: Anion Gap 12 mmol/L (10-20); BUN (Urea Nitrogen) 10 mg/dL (8.4-25.7); Calc. Creatinine Clearance 140 mL/min (70-130); Carbon Dioxide 27 mmol/L (22-29); Chloride 103 mmol/L (98-107); Glucose 87 mg/dL (70-105); Potassium 3.7 mmol/L (3.5-5.1); Sodium 138 mmol/L (136-145)
[2021-06-23] MEDS: Tamsulosin HCl 0.4 MG CAP PO SCH ×2 (09:04→19:54)
[2021-06-23] MEDS: Famotidine 20 MG TAB PO SCH ×2 (09:05→19:54)
[2021-06-23] MEDS: Famotidine/PF 20 mg/2ml Vial SLOW IVP SCH ×2 (09:05→19:55)
[2021-06-23] MEDS: Metoprolol Tartrate 25 MG TAB PO SCH ×2 (09:07→19:55)
[2021-06-23] MEDS: Amlodipine 10 MG TAB PO SCH (09:08)
[2021-06-23] MEDS: Polyethylene Glycol 3350 17 GM Packet PO SCH (09:08)
[2021-06-23] MEDS: Cholecalciferol 1,000 UNITS (25 MCG) TAB PO SCH (19:54)
[2021-06-23] MEDS: Enoxaparin Sodium 40 MG/0.4 ML SYRINGE SC SCH (19:55)
[2021-06-24] MEDS: Piperacillin/Tazobactam 3.375 GM in Sodium Chloride 0.9% 100 ML IVPB SCH (06:25)
[2021-06-24] MEDS: Famotidine 20 MG TAB PO SCH (08:46)
[2021-06-24] MEDS: Metoprolol Tartrate 25 MG TAB PO SCH (08:46)
[2021-06-24] MEDS: Amlodipine 10 MG TAB PO SCH (08:47)
[2021-06-24] MEDS: Polyethylene Glycol 3350 17 GM Packet PO SCH (08:47)
[2021-06-24] MEDS: Tamsulosin HCl 0.4 MG CAP PO SCH (08:47)
[2021-06-24] MEDS: Famotidine/PF 20 mg/2ml Vial SLOW IVP SCH (08:47)
[2021-06-24] MEDS ORDERED: Finasteride 5 MG TAB PO SCH (09:00)
[2021-06-24 11:50] VITALS: BP 127/82; TEMP 98.8
== END 2021-06-24 15:18 | disposition home or self-care (01) | DRG 417 ==
LOC: SDC 07:21 → SURG A 16:16 → OBSVTOIN 06-20 10:29
PROVIDERS: ADMIT Specialist; ATTEND Specialist
PROC: 0FT44ZZ Resection of Gallbladder, Percutaneous Endoscopic Approach (ICD-10-PCS; principal; 2021-06-17)
DX: K80.10 Calculus of gallbladder with chronic cholecystitis without obstruction (principal); J96.21 Acute and chronic respiratory failure with hypoxia; K56.7 Ileus, unspecified; J98.11 Atelectasis; N41.0 Acute prostatitis; R33.9 Retention of urine, unspecified; D69.6 Thrombocytopenia, unspecified; I10 Essential (primary) hypertension; K59.00 Constipation, unspecified; G47.33 Obstructive sleep apnea (adult) (pediatric); E66.9 Obesity, unspecified; Z68.29 Body mass index [BMI] 29.0-29.9, adult; E55.9 Vitamin D deficiency, unspecified; Z87.891 Personal history of nicotine dependence; N40.0 Benign prostatic hyperplasia without lower urinary tract symptoms; Z79.899 Other long term (current) drug therapy; Z20.822 Contact with and (suspected) exposure to COVID-19
CPT/HCPCS: 36415; 71045; 71046; 71275; 74022; 80048; 80053; 82306; 85025; 88304; 93005; 93010; 94640; 94660; 96372; 96374; 96375; 96376; G0378; J0690; J1100; J1170; J1650; J1885; J2250; J2270; J2405; J2543; J2704; J3010; J3490; J7120; J7620; Q9967; S0020; S0028; U0003; U0005

== ENCOUNTER 2021-09-16 12:46 | Outpatient (CLI) | payer OTHER ==
[2021-09-16 13:58] LABS: Hemoglobin 15.3 g/dL (13.5-17.5); Mean Corpuscular Hemoglobin 27.1 pg (27.0-33.0); Mean Corpuscular Volume 87.3 fl (81.2-95.1); Platelet Count 82 10x3/uL (150-450); RBC Distribution Width 15.5 % (11.5-14.5); Red Blood Cell (RBC) Count 5.65 10x6/uL (4.32-5.72); White Blood Cell (WBC) Count 6.2 10x3/uL (3.5-10.5)
[2021-09-16 13:59] LABS: Anion Gap 12 mmol/L (10-20); BUN (Urea Nitrogen) 13 mg/dL (8.4-25.7); Calc. Creatinine Clearance 0 mL/min (70-130); Calcium 9.5 mg/dL (7.8-10.44); Carbon Dioxide 25 mmol/L (22-29); Chloride 106 mmol/L (98-107); Glucose 101 mg/dL (70-105); Potassium 4.1 mmol/L (3.5-5.1); Sodium 139 mmol/L (136-145)
[2021-09-16 14:33] LABS: Bilirubin Neg (Negative); Blood, Urine Negative (Negative); Clarity Clear (Clear); Glucose, Urine (Dipstick) Normal (Negative); Ketone, Urine Negative (Negative); Leukocyte 25 (Negative); Nitrite Negative (Negative); Protein, Urine (Dipstick) 15 mg/dl (Neg-Trace); Specific Gravity, Urine 1.025 (1.002-1.036); Urobilinogen Normal mg/dL (Less than 2)
[2021-09-16 14:35] LABS: Band 4 % (5-11); Lymphocytes 25 % (21-51); Monocytes 22 % (0-10); Reactive Lymphocytes 5 % (0-10)
[2021-09-16 14:36] LABS: Large Platelets MODERATE; Neutrophil 44 % (42-75); Platelet Morphology Comment Appears Decreased
[2021-09-16 14:37] LABS: MDiff Complete? YES; RBC Morphology Normal
[2021-09-16 14:48] LABS: RBC/HPF 0-3 HPF (0-3); WBC/HPF 0-3 HPF (0-3)
[2021-09-16 14:49] LABS: Bacteria/HPF None Seen HPF (None Seen); Calcium Oxalate Crystals 3+ HPF (None Seen); Mucous/LPF 2+ LPF (<2+); Squamous Epithelial 0-3 HPF (0-3)
[2021-09-17 00:12] LABS: SARS-CoV-2 PCR by NAA Not Detected (NotDetected)
== END 2021-09-16 12:47 | disposition home or self-care (01) ==
LOC: LABBT 12:46
PROVIDERS: ATTEND Urology
DX: Z01.818 Encounter for other preprocedural examination (principal); N40.1 Benign prostatic hyperplasia with lower urinary tract symptoms; Z20.822 Contact with and (suspected) exposure to COVID-19
CPT/HCPCS: 80048; 81001; 85025; 87086; 93005; 93010; U0003; U0005

== ENCOUNTER 2021-09-21 06:52 | Observation (INO) | payer OTHER ==
[2021-09-16 15:17] VITALS: BMI 29.8
[2021-09-21] MEDS ORDERED: Fentanyl 250 MCG/5 ML VIAL ONE (09:05)
[2021-09-21] MEDS ORDERED: Levofloxacin 500 mg/D5W 100 ml Premix Bag ONE (09:06)
[2021-09-21] MEDS ORDERED: PROPOFOL 200 MG/20 ML VIAL ONE (09:12)
[2021-09-21] MEDS ORDERED: Ondansetron PF 4 MG/2 ML Vial ONE (09:12)
[2021-09-21] MEDS ORDERED: Lidocaine 1% PF 5 ML VIAL ONE (09:12)
[2021-09-21] MEDS ORDERED: Oxybutynin 5 MG TAB ONE (10:59)
[2021-09-21] MEDS ORDERED: Ketorolac Tromethamine 30 MG/ML VIAL ONE (11:00)
[2021-09-21] MEDS ORDERED: Phenazopyridine HCl 100 MG TAB ONE (11:00)
[2021-09-21] MEDS ORDERED: HYDROcodone/Acetaminophen 5/325 mg Tablet ONE (12:15)
[2021-09-21] MEDS ORDERED: diphenhydrAMINE 50 MG/ML VIAL IVP PRN (15:13)
[2021-09-21] MEDS ORDERED: Ondansetron PF 4 MG/2 ML Vial IVP PRN (15:13)
[2021-09-21] MEDS ORDERED: Ketorolac Tromethamine 30 MG/ML VIAL IVP PRN (15:13)
[2021-09-21] MEDS ORDERED: Oxybutynin 5 MG TAB PO PRN (15:13)
[2021-09-21] MEDS ORDERED: hydrALAZINE 20 MG/ML VIAL SLOW IVP PRN (15:13)
[2021-09-21] MEDS ORDERED: HYDROcodone/Acetaminophen 5/325 mg Tablet PO PRN (15:13)
[2021-09-21] MEDS: Sodium Chloride 0.9% 1,000 ML IV SCH ×2 (18:50→20:47)
[2021-09-21] MEDS: Tamsulosin HCl 0.4 MG CAP PO SCH (20:48)
[2021-09-21] MEDS: Docusate 100 MG CAP PO SCH (20:48)
[2021-09-22 07:54] VITALS: BP 147/84; TEMP 97.9
[2021-09-22] MEDS: Tamsulosin HCl 0.4 MG CAP PO SCH (08:44)
[2021-09-22] MEDS: Docusate 100 MG CAP PO SCH (08:45)
[2021-09-22] MEDS ORDERED: Aspirin 81 mg Enteric Coated Tablet PO SCH (09:00)
[2021-09-22] MEDS ORDERED: Finasteride 5 MG TAB PO SCH (09:00)
[2021-09-22] MEDS ORDERED: Amlodipine 10 MG TAB PO SCH (09:00)
== END 2021-09-22 11:45 | disposition home or self-care (01) ==
LOC: SDC 06:52 → SURG A 15:24
PROVIDERS: ADMIT Urology; ATTEND Urology
PROC: 0VT08ZZ Resection of Prostate, Via Natural or Artificial Opening Endoscopic (ICD-10-PCS; principal; 2021-09-21)
PROC: 0TCB8ZZ Extirpation of Matter from Bladder, Via Natural or Artificial Opening Endoscopic (ICD-10-PCS; 2021-09-21)
DX: N40.1 Benign prostatic hyperplasia with lower urinary tract symptoms (principal); N21.0 Calculus in bladder; N13.8 Other obstructive and reflux uropathy; R39.12 Poor urinary stream; R35.1 Nocturia; R39.14 Feeling of incomplete bladder emptying; R35.0 Frequency of micturition; R39.15 Urgency of urination; N32.89 Other specified disorders of bladder; Z79.82 Long term (current) use of aspirin; Z79.899 Other long term (current) drug therapy
CPT/HCPCS: 88305; G0378; J1885; J1956; J2405; J2704; J3010; J7050

== ENCOUNTER 2021-10-05 01:54 | Inpatient (IN) | payer OTHER ==
[2021-10-05 03:58] VITALS: BMI 31.0
[2021-10-05] MEDS ORDERED: Ondansetron PF 4 MG/2 ML Vial IVP PRN (05:18)
[2021-10-05] MEDS ORDERED: Ondansetron ODT 4 MG TAB PO PRN (05:18)
[2021-10-05] MEDS ORDERED: Acetaminophen 325 MG TAB PO PRN (05:18)
[2021-10-05] MEDS ORDERED: Acetaminophen 650 MG Suppository PR PRN (05:18)
[2021-10-05] MEDS ORDERED: Benzonatate 100 MG CAP PO PRN (05:22)
[2021-10-05] MEDS: Dexamethasone 4 mg/ml Vial SLOW IVP SCH (08:16)
[2021-10-05] MEDS: Enoxaparin Sodium 40 MG/0.4 ML SYRINGE SC SCH (08:17)
[2021-10-05] MEDS: guaiFENesin ER 600 MG TAB PO SCH ×2 (08:25→20:01)
[2021-10-05] MEDS ORDERED: REMDESIVIR 200 MG in Sodium Chloride 0.9% 250 ML 210 ML IV SCH (09:00)
[2021-10-05] MEDS ORDERED: Pantoprazole 40 MG VIAL IVP SCH (09:00)
[2021-10-05] MEDS ORDERED: Dexamethasone 10 MG in Sodium Chloride 0.9% 50 ML IVPB SCH (09:00)
[2021-10-05] MEDS ORDERED: FLU VACC QS2021-22(6MOS UP)/PF 60 MCG/0.5 ML SYRINGE IM ONE (09:00)
[2021-10-05] MEDS: Guaifenesin DM 100-10/5 ML UDCUP PO PRN ×2 (16:50→22:05)
[2021-10-05] MEDS: Tamsulosin HCl 0.4 MG CAP PO SCH (20:01)
[2021-10-05] MEDS ORDERED: Chloraseptic Spray 180 ml Bottle PO PRN (21:31)
[2021-10-05] MEDS ORDERED: Cepastat Lozenges 1 LOZ PO PRN (21:42)
[2021-10-05] MEDS: MUCINEX INSTASOOTHE SPRY (115 ML BOT) PO PRN (22:05)
[2021-10-06 04:40] LABS: Anion Gap 11 mmol/L (10-20); BUN (Urea Nitrogen) 16 mg/dL (8.4-25.7); Calc. Creatinine Clearance 119 mL/min (70-130); Calcium 8.8 mg/dL (7.8-10.44); Carbon Dioxide 25 mmol/L (22-29); Chloride 105 mmol/L (98-107); Glucose 118 mg/dL (70-105); Potassium 4.2 mmol/L (3.5-5.1); Sodium 137 mmol/L (136-145)
[2021-10-06 04:42] LABS: ALT (SGPT) 17 U/L (8-55); AST (SGOT) 13 U/L (5-34); Albumin 3.5 g/dL (3.5-5.0); Alkaline Phosphatase 74 U/L (40-110); Bilirubin, Direct 0.2 mg/dL (0.1-0.3); Bilirubin, Total 0.5 mg/dL (0.2-1.2); Protein, Total 6.6 g/dL (6.0-8.3)
[2021-10-06 06:17] LABS: Band 25 % (5-11); Hemoglobin 11.2 g/dL (14.0-18.0); Large Platelets SLIGHT; Lymphocytes 6 % (21-51); MDiff Complete? YES; Mean Corpuscular HGB CONC 32.2 g/dL (32.0-36.0); Mean Corpuscular Hemoglobin 27.8 pg (27.0-31.0); Mean Corpuscular Volume 86.4 fL (78.0-98.0); Mean Platelet Volume 9.5 fL (7.4-10.4); Monocytes 7 % (0-10); Neutrophil 62 % (42-75); Nucleated RBC 1 % (0); Platelet Count 78 thou/uL (130-400); Platelet Morphology Comment Appears Decreased; RBC Distribution Width 14.9 % (11.5-14.5); Red Blood Cell (RBC) Count 4.01 mill/uL (4.70-6.10); White Blood Cell (WBC) Count 19.6 thou/uL (4.8-10.8)
[2021-10-06 07:39] LABS: Magnesium 2.2 mg/dL (1.6-2.6)
[2021-10-06] MEDS: Ascorbic Acid 500 mg Chewable Tablet PO SCH (08:25)
[2021-10-06] MEDS: Oxybutynin 5 MG TAB PO SCH (08:25)
[2021-10-06] MEDS: Finasteride 5 MG TAB PO SCH (08:25)
[2021-10-06] MEDS: Enoxaparin Sodium 40 MG/0.4 ML SYRINGE SC SCH (08:25)
[2021-10-06] MEDS: guaiFENesin ER 600 MG TAB PO SCH ×2 (08:25→20:08)
[2021-10-06] MEDS: Dexamethasone 4 mg/ml Vial SLOW IVP SCH (08:26)
[2021-10-06] MEDS: Amlodipine 10 MG TAB PO SCH (08:26)
[2021-10-06] MEDS: Zinc Sulfate 220 MG CAP PO SCH (08:26)
[2021-10-06] MEDS: Cholecalciferol 1,000 UNITS (25 MCG) TAB PO SCH (08:26)
[2021-10-06] MEDS: Tamsulosin HCl 0.4 MG CAP PO SCH ×2 (08:27→20:08)
[2021-10-06] MEDS: REMDESIVIR 100 MG in Sodium Chloride 0.9% 250 ML 230 ML IV SCH (10:02)
[2021-10-06] MEDS ORDERED: Cepastat Lozenges 1 LOZ PO PRN (13:08)
[2021-10-06] MEDS: MUCINEX INSTASOOTHE SPRY (115 ML BOT) PO PRN (20:09)
[2021-10-07 05:32] LABS: ALT (SGPT) 17 U/L (8-55); AST (SGOT) 13 U/L (5-34); Albumin 3.5 g/dL (3.5-5.0); Alkaline Phosphatase 74 U/L (40-110); Anion Gap 12 mmol/L (10-20); BUN (Urea Nitrogen) 20 mg/dL (8.4-25.7); Bilirubin, Direct 0.2 mg/dL (0.1-0.3); Bilirubin, Total 0.4 mg/dL (0.2-1.2); Calc. Creatinine Clearance 131 mL/min (70-130); Carbon Dioxide 25 mmol/L (22-29); Chloride 105 mmol/L (98-107); Glucose 112 mg/dL (70-105); Potassium 4.3 mmol/L (3.5-5.1); Protein, Total 6.8 g/dL (6.0-8.3); Sodium 138 mmol/L (136-145)
[2021-10-07 05:41] LABS: Hemoglobin 12.3 g/dL (14.0-18.0); Mean Corpuscular HGB CONC 32.7 g/dL (32.0-36.0); Mean Corpuscular Hemoglobin 28.1 pg (27.0-31.0); Mean Corpuscular Volume 86.1 fL (78.0-98.0); Mean Platelet Volume 10.6 fL (7.4-10.4); Platelet Count 84 thou/uL (130-400); RBC Distribution Width 14.7 % (11.5-14.5); Red Blood Cell (RBC) Count 4.36 mill/uL (4.70-6.10)
[2021-10-07 06:13] LABS: Band 12 % (5-11); Large Platelets SLIGHT; Lymphocytes 17 % (21-51); MDiff Complete? YES; Monocytes 7 % (0-10); Neutrophil 64 % (42-75); Platelet Morphology Comment Appears Decreased; White Blood Cell (WBC) Count 13.3 thou/uL (4.8-10.8)
[2021-10-07] MEDS: Zinc Sulfate 220 MG CAP PO SCH (08:26)
[2021-10-07] MEDS: Ascorbic Acid 500 mg Chewable Tablet PO SCH (08:26)
[2021-10-07] MEDS: Cholecalciferol 1,000 UNITS (25 MCG) TAB PO SCH (08:26)
[2021-10-07] MEDS: guaiFENesin ER 600 MG TAB PO SCH (08:26)
[2021-10-07] MEDS: Tamsulosin HCl 0.4 MG CAP PO SCH (08:27)
[2021-10-07] MEDS: Oxybutynin 5 MG TAB PO SCH (08:27)
[2021-10-07] MEDS: Dexamethasone 4 mg/ml Vial SLOW IVP SCH (08:27)
[2021-10-07] MEDS: Finasteride 5 MG TAB PO SCH (08:27)
[2021-10-07] MEDS: Amlodipine 10 MG TAB PO SCH (08:27)
[2021-10-07] MEDS ORDERED: Aspirin 81 mg Enteric Coated Tablet PO SCH (09:00)
[2021-10-07] MEDS: Enoxaparin Sodium 40 MG/0.4 ML SYRINGE SC SCH (10:33)
[2021-10-07 11:15] LABS: INR-International Normal Ratio 1.1; Prothrombin Time 14.4 sec (12.0-14.7)
[2021-10-07] MEDS: REMDESIVIR 100 MG in Sodium Chloride 0.9% 250 ML 230 ML IV SCH (11:23)
[2021-10-07] MEDS: MUCINEX INSTASOOTHE SPRY (115 ML BOT) PO PRN (11:23)
[2021-10-07 12:08] VITALS: BP 123/77; TEMP 97.9
== END 2021-10-07 15:37 | disposition home or self-care (01) | DRG 177 ==
LOC: 2SW 01:54 → OBSVTOIN 05:20
PROVIDERS: ADMIT Student in an Organized Health Care Education/Training Program; ATTEND Internal Medicine
PROC: XW043E5 Introduction of Remdesivir Anti-infective into Central Vein, Percutaneous Approach, New Technology Group 5 (ICD-10-PCS; principal; 2021-10-05)
PROC: 8E0ZXY6 Isolation (ICD-10-PCS; 2021-10-05)
PROC: 3E03329 Introduction of Other Anti-infective into Peripheral Vein, Percutaneous Approach (ICD-10-PCS; 2021-10-05)
DX: U07.1 COVID-19 (principal); J12.82 Pneumonia due to coronavirus disease 2019; J96.01 Acute respiratory failure with hypoxia; I47.2 Ventricular tachycardia; I10 Essential (primary) hypertension; G62.9 Polyneuropathy, unspecified; D72.829 Elevated white blood cell count, unspecified; T38.0X5A Adverse effect of glucocorticoids and synthetic analogues, initial encounter; I71.9 Aortic aneurysm of unspecified site, without rupture; J02.9 Acute pharyngitis, unspecified; G47.33 Obstructive sleep apnea (adult) (pediatric); K21.9 Gastro-esophageal reflux disease without esophagitis; Z79.899 Other long term (current) drug therapy; Z79.82 Long term (current) use of aspirin; Z86.73 Personal history of transient ischemic attack (TIA), and cerebral infarction without residual deficits; Z90.49 Acquired absence of other specified parts of digestive tract; Z87.891 Personal history of nicotine dependence
CPT/HCPCS: 36415; 80048; 80076; 83735; 84484; 85025; 85610; 93005; 93010; C9113; J0248; J1100; J1650; J7050

== ENCOUNTER 2022-04-11 02:43 | Observation (INO) | payer OTHER ==
[2022-04-11] MEDS ORDERED: Ondansetron ODT 4 MG TAB PO PRN (03:54)
[2022-04-11] MEDS ORDERED: Nitroglycerin 0.4 MG TAB (25 Tab Bottle) SL PRN (03:54)
[2022-04-11] MEDS ORDERED: Acetaminophen 325 MG TAB PO PRN (03:54)
[2022-04-11] MEDS ORDERED: HYDROcodone/Acetaminophen 5/325 mg Tablet PO PRN (03:54)
[2022-04-11] MEDS ORDERED: Ondansetron PF 4 MG/2 ML Vial IVP PRN (03:54)
[2022-04-11] MEDS ORDERED: Labetalol HCl 100 MG/20 ML VIAL SLOW IVP PRN (04:02)
[2022-04-11] MEDS ORDERED: hydrALAZINE 20 MG/ML VIAL SLOW IVP PRN (04:02)
[2022-04-11 05:19] LABS: Hemoglobin A1c 5.1 % (4.0-6.0)
[2022-04-11 05:38] LABS: Troponin I 0.031 ng/mL (< 0.028)
[2022-04-11 05:39] LABS: Cardiac Risk 4.5 (Less than 4.5)
[2022-04-11 08:55] LABS: Anion Gap 13 mmol/L (10-20); BUN (Urea Nitrogen) 12 mg/dL (8.4-25.7); Calc. Creatinine Clearance 130 mL/min (70-130); Carbon Dioxide 23 mmol/L (22-29); Chloride 108 mmol/L (98-107); Estimated GFR 100; Glucose 95 mg/dL (70-105); Sodium 140 mmol/L (136-145)
[2022-04-11] MEDS ORDERED: ADENOSINE 60 MG/20 ML VIAL ONE (08:56)
[2022-04-11 09:00] LABS: Troponin I 0.031 ng/mL (< 0.028)
[2022-04-11 09:01] LABS: Troponin I 0.035 ng/mL (< 0.028)
[2022-04-11 09:17] LABS: Band 2 % (5-11); Eosinophils 8 % (0-10); Large Platelets SLIGHT; Lymphocytes 36 % (21-51); MDiff Complete? YES; Mean Corpuscular HGB CONC 29.7 g/dL (32.0-36.0); Mean Corpuscular Hemoglobin 20.9 pg (27.0-31.0); Mean Corpuscular Volume 70.4 fL (78.0-98.0); Mean Platelet Volume 13.6 fL (7.4-10.4); Microcytosis MODERATE=15-30 cells (100X) (0-5/hpf); Neutrophil 54 % (42-75); Platelet Count 31 thou/uL (130-400); Platelet Morphology Comment Appears Decreased; RBC Distribution Width 19.5 % (11.5-14.5); Red Blood Cell (RBC) Count 4.77 mill/uL (4.70-6.10); White Blood Cell (WBC) Count 2.3 thou/uL (4.8-10.8)
[2022-04-11] MEDS: Amlodipine 5 MG TAB PO SCH (13:46)
[2022-04-11] MEDS: Aspirin Chewable 81 MG TAB PO SCH (13:46)
[2022-04-12 04:56] VITALS: BMI 29.7
[2022-04-12 05:15] LABS: Anion Gap 12 mmol/L (10-20); BUN (Urea Nitrogen) 11 mg/dL (8.4-25.7); Calc. Creatinine Clearance 121 mL/min (70-130); Carbon Dioxide 22 mmol/L (22-29); Chloride 109 mmol/L (98-107); Estimated GFR 96; Glucose 94 mg/dL (70-105); Potassium 4.1 mmol/L (3.5-5.1); Sodium 139 mmol/L (136-145)
[2022-04-12 05:35] LABS: #Eosinphils 0.2 thou/uL (0.0-0.7); #Lymphocytes 1.2 thou/uL (1.20-3.40); #Neutrophils 1.4 thou/uL (1.40-6.50); %Basophils 0.2 % (0.0-1.0); %Eosinophils 6.9 % (0.0-10.0); %Lymphocytes 41.2 % (21.0-51.0); %Monocytes 0.1 % (0.0-10.0); %Neutrophils 51.5 % (42.0-75.0); Anisocytosis SLIGHT = 6-15 cells (100X) (0-5/hpf); Eosinophils 1 % (0-10); Giant Platelets SLIGHT; Hemoglobin 9.9 g/dL (14.0-18.0); Hypochromia SLIGHT = 6-15 cells (100X) (0-5/hpf); Large Platelets SLIGHT; Lymphocytes 33 % (21-51); MDiff Complete? YES; Mean Corpuscular HGB CONC 30.1 g/dL (32.0-36.0); Mean Corpuscular Hemoglobin 21.2 pg (27.0-31.0); Mean Corpuscular Volume 70.5 fL (78.0-98.0); Mean Platelet Volume 7.9 fL (7.4-10.4); Monocytes 2 % (0-10); Neutrophil 58 % (42-75); Platelet Count 36 thou/uL (130-400); Platelet Morphology Comment Appears Decreased; Polychromasia SLIGHT = 2-3 cells (100X) (0-2/hpf); RBC Distribution Width 19.5 % (11.5-14.5); Red Blood Cell (RBC) Count 4.67 mill/uL (4.70-6.10); Reflex for Review?? NO; Stomatocytes SLIGHT = 2-5 cells (100X) (0-1/hpf); White Blood Cell (WBC) Count 2.8 thou/uL (4.8-10.8)
[2022-04-12] MEDS: Aspirin Chewable 81 MG TAB PO SCH (08:44)
[2022-04-12] MEDS: Amlodipine 5 MG TAB PO SCH (08:44)
[2022-04-12] MEDS ORDERED: Iopamidol 370 76% 100 ML VIAL ONE (12:51)
[2022-04-12 15:52] VITALS: BP 145/85; TEMP 97.8
== END 2022-04-12 16:30 | disposition home or self-care (01) ==
LOC: 2SW 02:43
PROVIDERS: ADMIT Family Medicine; ATTEND Family Medicine
DX: R07.2 Precordial pain (principal); D61.818 Other pancytopenia; I10 Essential (primary) hypertension; K21.9 Gastro-esophageal reflux disease without esophagitis; I08.2 Rheumatic disorders of both aortic and tricuspid valves; I77.810 Thoracic aortic ectasia; Z86.73 Personal history of transient ischemic attack (TIA), and cerebral infarction without residual deficits; Z87.891 Personal history of nicotine dependence; Z79.82 Long term (current) use of aspirin; Z79.899 Other long term (current) drug therapy; Z88.5 Allergy status to narcotic agent; Z20.822 Contact with and (suspected) exposure to COVID-19
CPT/HCPCS: 36415; 71275; 78452; 80048; 80061; 83036; 84443; 85025; 93017; 93306; A9500; G0378; J0153; U0003; U0005